=== PATIENT | female | born 1950 ===

== ENCOUNTER 2018-12-10 13:59 | Outpatient (CLI) | payer MEDICARE | END 2018-12-10 14:00 | disposition home or self-care (01) | LOC: C.RADIC 13:59 ==

== ENCOUNTER 2018-12-25 20:38 | Inpatient (IN) | payer MEDICAID, MEDICARE ==
--- NOTE | 2018-12-25 20:49 | C.PDOC ---
History Of Present Illness Patient presents with progressive SOB and chest pain on exertion worsening over the last 2 weeks. Patient was just seen by Dr. Perales and sent in for evaluation. She had recent blood work showing a hemoglobin of 7. Patient is currently speaking in complete sentences. Denies fever, chills, nausea, or vomiting. Time Seen by Provider: 12/25/18 20:48 History Per: Patient History/Exam Limitations: no limitations Onset/Duration Of Symptoms: Days Current Symptoms Are (Timing): Still Present Initiating Event: Other Exacerbating Factor(s): Exertion Current Respiratory Medications: See Home Med List Severity: Moderate Pain Scale Rating Of: 4 Associated Symptoms: Chest Pain, Other (SOB). denies: Fever, Chills Reports Recently: Treated By A Physician Recent travel outside of the [place]: No Additional History Per: Family Past Medical History Reviewed: Historical Data, Nursing Documentation, Vital Signs Family History: States: No Known Family Hx Review Of Systems Constitutional: Negative for: Fever, Chills Cardiovascular: Positive for: Chest Pain Respiratory: Positive for: Shortness of Breath Gastrointestinal: Negative for: Nausea, Vomiting Genitourinary: Negative for: Dysuria Musculoskeletal: Negative for: Back Pain Skin: Negative for: Rash Neurological: Negative for: Weakness, Numbness Psych: Negative for: Anxiety Physical Exam - Physical Exam Appears: Non-toxic Skin: Warm, Dry Head: Normacephalic Eye(s): bilateral: Normal Inspection Oral Mucosa: Moist Neck: Supple Chest: Symmetrical, No Tenderness Cardiovascular: Rhythm Regular Respiratory: No Rales, No Rhonchi, No Wheezing Gastrointestinal/Abdominal: Soft, No Tenderness Rectal: Other (black tool(pt oniron) heme neg) Back: No CVA Tenderness Extremity: Pedal Edema (Trace) Extremity: Bilateral: Atraumatic Pulses: Left Dorsalis Pedis: Normal, Right Dorsalis Pedis: Normal Neurological/Psych: Oriented x3 Gait: Steady ED Course And Treatment - Laboratory Results Result Diagrams: 12/25/18 21:26 12/25/18 21:26 ECG: Interpreted By Me, Viewed By Me ECG Rhythm: Sinus Rhythm (90), Nonspecific Changes O2 Sat by Pulse Oximetry: 99 Pulse Ox Interpretation: Normal - Radiology CXR: Interpreted by Me, Viewed By Me Progress Note: EKG, blood work, CXR, and urinalysis ordered. Aspirin administered. Disposition Discussed With : Crow Hollis Comment: accepeted the pt on his service and took over the care at 10:04PM Doctor Will See Patient In The: Hospital Counseled Patient/Family Regarding: Studies Performed, Diagnosis - Disposition Disposition: HOSPITALIZED Disposition Time: 20:49 Condition: GUARDED - POA Present On Arrival: Poor Glycemic Control - Clinical Impression Clinical Impression: Dyspnea, Chest pain, Dyspnea on exertion, Severe anemia - Scribe Statement The provider has reviewed the documentation as recorded by the Jenaeibemelina Kirk All medical record entries made by the Jenaeibemelina were at my direction and personally dictated by me. I have reviewed the chart and agree that the record accurately reflects my personal performance of the history, physical exam, medical decision making, and the department course for this patient. I have also personally directed, reviewed, and agree with the discharge instructions and disposition. Decision To Admit - Pt Status Changed To: Hospital Disposition Of: Inpatient - Admit Certification Admit to Inpatient:: After my assessment, the patient will require hospitalization for at least two midnights. This is because of the severity of symptoms shown, intensity of services needed, and/or the medical risk in this patient being treated as an outpatient. - InPatient: Physician Admission Certification: I certify that this patient requires 2 or more midnights of care for the following reason:: After my assessment, the patient will require hospitalization for at least two midnights. This is because of the severity of symptoms shown, intensity of services needed, and/or the medical risk in this patient being treated as an outpatient. - . Bed Request Type: Telemetry Admitting Physician: Crow Hollis Patient Diagnosis: Dyspnea, Chest pain, Dyspnea on exertion, Severe anemia
[2018-12-25] MEDS ORDERED: Aspirin 325 mg EC Tablets PO STA (21:20)
[2018-12-25 21:39] LABS: BASO # 0.1 K/uL (0.0-0.2); BASO % 0.8 % (0.0-2.0); EOS # 0.2 K/uL (0.0-0.7); EOS % 2.1 % (0.0-4.0); HEMOGLOBIN 6.9 g/dL (11.0-16.0); LYMPH % 19.3 % (20.0-40.0); MEAN CELL VOLUME 69.7 fL (81.0-99.0); MEAN CORPUSCULAR HEMOGLOBIN 22.2 pg (27.0-31.0); MEAN CORPUSCULAR HGB CONC 31.9 g/dL (33.0-37.0); MEAN PLATELET VOLUME 7.5 fL (7.2-11.7); MONO # 0.7 K/uL (0.0-0.8); NEUT # 7.4 K/uL (1.8-7.0); NEUT % 70.8 % (50.0-75.0); NRBC % 0.1 % (0.0-2.0); RBC 3.09 Mil/uL (3.80-5.20); WHITE BLOOD COUNT 10.4 K/uL (4.8-10.8)
[2018-12-25 21:46] LABS: ALB/GLOB RATIO 1.3 (1.0-2.1); ALBUMIN 4.1 g/dL (3.5-5.0); ALT/SGPT 24 U/L (9-52); AST/SGOT 23 U/L (14-36); BLOOD UREA NITROGEN 11 mg/dL (7-17); CALCIUM 9.7 mg/dl (8.6-10.4); GFR NON-AFRICAN AMERICAN 55
[2018-12-25 21:49] LABS: INR 1.1; PARTIAL THROMBOPLASTIN TIME 32.2 SECONDS (21-34); PROTHROMBIN TIME 11.7 SECONDS (9.7-12.2)
[2018-12-25 21:58] LABS: B-TYPE NATRIURETIC PEPTIDE 161 pg/mL (0-900)
--- NOTE | 2018-12-25 23:27 | CP.PCM.HP ---
<Crow Hollis - Last Filed: 12/25/18 23:27> Past Patient History - Infectious Disease Hx of Infectious Diseases: None - Past Social History Smoking Status: Never Smoked - CARDIAC Hx Hypertension: Yes - ENDOCRINE/METABOLIC Hx Diabetes Mellitus Type 2: Yes - PSYCHIATRIC Hx Substance Use: No - SURGICAL HISTORY Other/Comment: stents -X2 - ANESTHESIA Hx Anesthesia: No Meds Allergies/Adverse Reactions: Allergies Allergy/AdvReac Type Severity Reaction Status Date / Time No Known Allergies Allergy Unverified 12/25/18 21:01 Results - Vital Signs Recent Vital Signs: Last Vital Signs Temp 98.3 F 12/25/18 20:52 Pulse 90 12/25/18 22:34 Resp 17 12/25/18 22:34 BP 145/70 12/25/18 22:34 Pulse Ox 100 12/25/18 22:34 - Labs Result Diagrams: 12/25/18 21:26 12/25/18 21:26 Labs: Laboratory Results - last 24 hr 12/25/18 12/25/18 12/25/18 21:26 21:26 21:26 WBC 10.4 RBC 3.09 L Hgb 6.9 L Hct 21.6 L MCV 69.7 L MCH 22.2 L MCHC 31.9 L RDW 18.0 H Plt Count 295 MPV 7.5 Neut % (Auto) 70.8 Lymph % (Auto) 19.3 L Graves % (Auto) 7.0 Eos % (Auto) 2.1 Baso % (Auto) 0.8 Neut # (Auto) 7.4 H Lymph # (Auto) 2.0 Graves # (Auto) 0.7 Eos # (Auto) 0.2 Baso # (Auto) 0.1 PT 11.7 INR 1.1 APTT 32.2 Sodium 134 Potassium 4.3 Chloride 99 Carbon Dioxide 23 Anion Gap 16 BUN 11 Creatinine 1.0 Est GFR ( Amer) > 60 Est GFR (Non-Af Amer) 55 Random Glucose 175 H Calcium 9.7 Magnesium 1.7 Total Bilirubin 0.2 AST 23 ALT 24 Alkaline Phosphatase 81 Troponin I < 0.0120 NT-Pro-B Natriuret Pep 161 Total Protein 7.3 Albumin 4.1 Globulin 3.2 Albumin/Globulin Ratio 1.3 Blood Type Antibody Screen 12/25/18 21:33 WBC RBC Hgb Hct MCV MCH MCHC RDW Plt Count MPV Neut % (Auto) Lymph % (Auto) Graves % (Auto) Eos % (Auto) Baso % (Auto) Neut # (Auto) Lymph # (Auto) Graves # (Auto) Eos # (Auto) Baso # (Auto) PT INR APTT Sodium Potassium Chloride Carbon Dioxide Anion Gap BUN Creatinine Est GFR ( Amer) Est GFR (Non-Af Amer) Random Glucose Calcium Magnesium Total Bilirubin AST ALT Alkaline Phosphatase Troponin I NT-Pro-B Natriuret Pep Total Protein Albumin Globulin Albumin/Globulin Ratio Blood Type O POSITIVE Antibody Screen Negative <Elvie Zee - Last Filed: 12/26/18 09:03> History of Present Illness - History of Present Illness History of Present Illness: GI Consult PGY5 Consult Note This is a 68yF with pmhx of CAD s/p PCI 3yrs ago on Brilinta and aspirin, HTN, HLD, DM presenting with complaints of generalized weakness and SOB for the past 1 week. Pt denies any rectal bleeding and melena, no prior EGD/Colonoscopy. Per pt's daughter in law over the phone reports she went to [facility] due to pt's complaints and everything was okay and then went to PCP who did blood work with low Hgb an started on iron pills this week. Since pt continued to complain of weakness and unable to climb stairs brought her to the ER. Hgb 6.9, Tachy on admission and given 1U PRCs. ROS: A 12pt ROS was negative except as above. PmHx: As stated in HPI PsHx: Denies FHx: Neg for GI malignancy Physical Exam - Constitutional Appears: Non-toxic, No Acute Distress - Head Exam Head Exam: ATRAUMATIC, NORMAL INSPECTION, NORMOCEPHALIC - Eye Exam Eye Exam: EOMI, Normal appearance, PERRL Pupil Exam: PERRL - ENT Exam ENT Exam: Mucous Membranes Moist, Normal Exam - Neck Exam Neck exam: Positive for: Full Rom, Normal Inspection - Respiratory Exam Respiratory Exam: Clear to Auscultation Bilateral, NORMAL BREATHING PATTERN - Cardiovascular Exam Cardiovascular Exam: REGULAR RHYTHM, RRR, +S1, +S2 - GI/Abdominal Exam GI & Abdominal Exam: Normal Bowel Sounds, Soft. absent: Distended, Firm, Guarding, Tenderness - Rectal Exam Rectal Exam: NORMAL INSPECTION. absent: Black Stool, Bloody Stool, Hemorrhoids, Fecal Impaction - Extremities Exam Extremities exam: Positive for: full ROM, normal inspection - Back Exam Back exam: NORMAL INSPECTION - Neurological Exam Neurological exam: Alert, Oriented x3 - Psychiatric Exam Psychiatric exam: Normal Affect, Normal Mood - Skin Skin Exam: Dry, Intact, Normal Color, Warm Results - Vital Signs Recent Vital Signs: Last Vital Signs Temp 97.8 F 12/26/18 07:06 Pulse 92 H 12/26/18 07:06 Resp 20 12/26/18 07:06 BP 138/75 12/26/18 07:06 Pulse Ox 95 12/26/18 07:06 - Labs Result Diagrams: 12/25/18 21:26 12/25/18 21:26 Labs: Laboratory Results - last 24 hr 12/25/18 12/25/18 12/25/18 21:26 21:26 21:26 WBC 10.4 RBC 3.09 L Hgb 6.9 L Hct 21.6 L MCV 69.7 L MCH 22.2 L MCHC 31.9 L RDW 18.0 H Plt Count 295 MPV 7.5 Neut % (Auto) 70.8 Lymph % (Auto) 19.3 L Graves % (Auto) 7.0 Eos % (Auto) 2.1 Baso % (Auto) 0.8 Neut # (Auto) 7.4 H Lymph # (Auto) 2.0 Graves # (Auto) 0.7 Eos # (Auto) 0.2 Baso # (Auto) 0.1 PT 11.7 INR 1.1 APTT 32.2 Sodium 134 Potassium 4.3 Chloride 99 Carbon Dioxide 23 Anion Gap 16 BUN 11 Creatinine 1.0 Est GFR ( Amer) > 60 Est GFR (Non-Af Amer) 55 POC Glucose (mg/dL) Random Glucose 175 H Calcium 9.7 Magnesium 1.7 Total Bilirubin 0.2 AST 23 ALT 24 Alkaline Phosphatase 81 Troponin I < 0.0120 NT-Pro-B Natriuret Pep 161 Total Protein 7.3 Albumin 4.1 Globulin 3.2 Albumin/Globulin Ratio 1.3 Urine Color Urine Clarity Urine pH Ur Specific [place] Urine Protein Urine Glucose (UA) Urine Ketones Urine Blood Urine Nitrate Urine Bilirubin Urine Urobilinogen Ur Leukocyte Esterase Urine WBC (Auto) Urine RBC (Auto) Ur Squamous Epith Cells Urine Bacteria Stool Occult Blood Blood Type Antibody Screen 12/25/18 12/25/18 12/26/18 21:33 23:39 01:20 WBC RBC Hgb Hct MCV MCH MCHC RDW Plt Count MPV Neut % (Auto) Lymph % (Auto) Graves % (Auto) Eos % (Auto) Baso % (Auto) Neut # (Auto) Lymph # (Auto) Graves # (Auto) Eos # (Auto) Baso # (Auto) PT INR APTT Sodium Potassium Chloride Carbon Dioxide Anion Gap BUN Creatinine Est GFR ( Amer) Est GFR (Non-Af Amer) POC Glucose (mg/dL) Random Glucose Calcium Magnesium Total Bilirubin AST ALT Alkaline Phosphatase Troponin I NT-Pro-B Natriuret Pep Total Protein Albumin Globulin Albumin/Globulin Ratio Urine Color Straw Urine Clarity Clear Urine pH 7.0 Ur Specific [place] 1.006 Urine Protein Negative Urine Glucose (UA) Normal Urine Ketones Negative Urine Blood 1+ H Urine Nitrate Negative Urine Bilirubin Negative Urine Urobilinogen Normal Ur Leukocyte Esterase 1+ H Urine WBC (Auto) 4 Urine RBC (Auto) 6 H Ur Squamous Epith Cells 1 Urine Bacteria Occ H Stool Occult Blood Negative Blood Type O POSITIVE Antibody Screen Negative 12/26/18 06:45 WBC RBC Hgb Hct MCV MCH MCHC RDW Plt Count MPV Neut % (Auto) Lymph % (Auto) Graves % (Auto) Eos % (Auto) Baso % (Auto) Neut # (Auto) Lymph # (Auto) Graves # (Auto) Eos # (Auto) Baso # (Auto) PT INR APTT Sodium Potassium Chloride Carbon Dioxide Anion Gap BUN Creatinine Est GFR ( Amer) Est GFR (Non-Af Amer) POC Glucose (mg/dL) 116 H Random Glucose Calcium Magnesium Total Bilirubin AST ALT Alkaline Phosphatase Troponin I NT-Pro-B Natriuret Pep Total Protein Albumin Globulin Albumin/Globulin Ratio Urine Color Urine Clarity Urine pH Ur Specific [place] Urine Protein Urine Glucose (UA) Urine Ketones Urine Blood Urine Nitrate Urine Bilirubin Urine Urobilinogen Ur Leukocyte Esterase Urine WBC (Auto) Urine RBC (Auto) Ur Squamous Epith Cells Urine Bacteria Stool Occult Blood Blood Type Antibody Screen Assessment & Plan - Assessment and Plan (Free Text) Assessment: 1. Symptomatic Anemia 2. CADs/p PCI on Brilinta 3. HTN, HLD, DM Plan: -Continue supportive care -No active GI bleeding at this time -s/p 1u PRBCs, ordered stat CBC to see if Hgb improved -Rectal exam with brown stool -Pt with CAD on Brilinta -Recommend Cardiology workup and transfuse if Hgb <7 with goal 8-9 -No plan for endoscopic evaluation at this -Pt will need EGD during this admission once cardiac workup completed -Will continue to follow pt
[2018-12-25 23:50] LABS: SQUAMOUS EPITHIAL 1 /hpf (0-5); URINE BACTERIA OCC (<OCC); URINE BILIRUBIN NEGATIVE (NEGATIVE); URINE BLOOD 1+ (NEGATIVE); URINE CLARITY Clear (Clear); URINE COLOR Straw (YELLOW); URINE GLUCOSE (UA) NORMAL (Normal); URINE LEUKOCYTE ESTERASE 1+ Leu/uL (Negative); URINE PROTEIN NEGATIVE (NEGATIVE); URINE UROBILINOGEN NORMAL mg/dL (0.2-1.0)
[2018-12-26] MEDS: Albuterol-Ipratrop 3 mg / 0.5 (3 ml) UD INH SCH ×4 (07:59→20:57)
[2018-12-26 08:18] LABS: MEAN CORPUSCULAR HEMOGLOBIN 24.4 pg (27.0-31.0); MEAN CORPUSCULAR HGB CONC 33.1 g/dL (33.0-37.0); MEAN PLATELET VOLUME 7.8 fL (7.2-11.7); RBC 3.79 Mil/uL (3.80-5.20); RED CELL DISTRIBUTION WIDTH 21.5 % (11.5-14.5); WHITE BLOOD COUNT 9.8 K/uL (4.8-10.8)
[2018-12-26 08:33] LABS: HEMOGLOBIN 9.2 g/dL (11.0-16.0); MEAN CELL VOLUME 73.5 fL (81.0-99.0)
[2018-12-26 08:38] LABS: CK-MB 0.68 ng/mL (0.0-3.38)
[2018-12-26 08:47] LABS: ALB/GLOB RATIO 1.3 (1.0-2.1); ALBUMIN 4.3 g/dL (3.5-5.0); ALT/SGPT 27 U/L (9-52); AST/SGOT 33 U/L (14-36); BLOOD UREA NITROGEN 10 mg/dL (7-17); GFR NON-AFRICAN AMERICAN 55
--- NOTE | 2018-12-26 09:10 | CP.PCM.CON ---
<Elvie Zee - Last Filed: 12/26/18 09:07> History of Present Illness - History of Present Illness History of Present Illness: GI Consult PGY5 Consult Note This is a 68yF with pmhx of CAD s/p PCI 3yrs ago on Brilinta and aspirin, HTN, HLD, DM presenting with complaints of generalized weakness and SOB for the past 1 week. Pt denies any rectal bleeding and melena, no prior EGD/Colonoscopy. Per pt's daughter in law over the phone reports she went to supervisor varnish due to pt's complaints and everything was okay and then went to PCP who did blood work with low Hgb an started on iron pills this week. Since pt continued to complain of weakness and unable to climb stairs brought her to the ER. Hgb 6.9, Tachy on admission and given 1U PRCs. ROS: A 12pt ROS was negative except as above. PmHx: As stated in HPI PsHx: Denies FHx: Neg for GI malignancy Past Patient History - Infectious Disease Hx of Infectious Diseases: None - Past Medical History & Family History Past Medical History?: Yes - Past Social History Smoking Status: Never Smoked - CARDIAC Hx Cardiac Disorders: Yes Hx Hypercholesterolemia: Yes Hx Hypertension: Yes Other/Comment: Coronary Artery Disease, s/p PTCA 2016 - PULMONARY Hx Respiratory Disorders: No - NEUROLOGICAL Hx Neurological Disorder: No - HEENT Hx HEENT Problems: No - RENAL Hx Chronic Kidney Disease: No - ENDOCRINE/METABOLIC Hx Endocrine Disorders: Yes Hx Diabetes Mellitus Type 2: Yes - HEMATOLOGICAL/ONCOLOGICAL Hx Blood Disorders: No - INTEGUMENTARY Hx Dermatological Problems: No - MUSCULOSKELETAL/RHEUMATOLOGICAL Hx Musculoskeletal Disorders: No Hx Falls: No - GASTROINTESTINAL Hx Gastrointestinal Disorders: No - GENITOURINARY/GYNECOLOGICAL Hx Genitourinary Disorders: No - PSYCHIATRIC Hx Psychophysiologic Disorder: No Hx Substance Use: No - SURGICAL HISTORY Hx Surgeries: Yes Other/Comment: stents -X2 - ANESTHESIA Hx Anesthesia: No Meds Allergies/Adverse Reactions: Allergies Allergy/AdvReac Type Severity Reaction Status Date / Time No Known Allergies Allergy Unverified 12/25/18 21:01 - Medications Medications: Current Medications Albuterol/Ipratropium (Duoneb 3 Mg/0.5 Mg (3 Ml) Ud) 3 ml INH RQ4 ILZ Last Admin: 12/26/18 07:59 Dose: 3 ml Aspirin (Aspirin) 325 mg PO DAILY [facility] Ferric Sodium Gluconate Complex (Ferrlecit) 125 mg IVPB DAILY [facility], [facility]1983 Stop: 01/03/19 10:01 Pantoprazole Sodium (Protonix Inj) 40 mg IVP Q12H [facility], [facility] Last Admin: 12/26/18 08:59 Dose: 40 mg Pneumococcal Polyvalent Vaccine (Pneumovax 23 Vaccine) 0.5 ml IM .ONCE ONE Stop: 12/28/18 10:01 Physical Exam - Constitutional Appears: Non-toxic, No Acute Distress - Head Exam Head Exam: ATRAUMATIC, NORMAL INSPECTION, NORMOCEPHALIC - Eye Exam Eye Exam: EOMI, Normal appearance, PERRL Pupil Exam: PERRL - ENT Exam ENT Exam: Mucous Membranes Moist, Normal Exam - Respiratory Exam Respiratory Exam: Clear to Auscultation Bilateral, NORMAL BREATHING PATTERN - Cardiovascular Exam Cardiovascular Exam: REGULAR RHYTHM, RRR, +S1, +S2 - GI/Abdominal Exam GI & Abdominal Exam: Normal Bowel Sounds, Soft. absent: Distended, Firm, Guarding, Organomegaly, Tenderness - Rectal Exam Rectal Exam: NORMAL INSPECTION. absent: Black Stool, Bloody Stool, Hemorrhoids, Fecal Impaction - Extremities Exam Extremities exam: Positive for: full ROM, normal inspection - Back Exam Back exam: FULL ROM, NORMAL INSPECTION - Neurological Exam Neurological exam: Alert, Oriented x3 - Psychiatric Exam Psychiatric exam: Normal Affect, Normal Mood - Skin Skin Exam: Dry, Intact, Normal Color, Warm Results - Vital Signs Recent Vital Signs: Last Vital Signs Temp 97.8 F 12/26/18 07:06 Pulse 92 H 12/26/18 07:06 Resp 20 12/26/18 07:06 BP 138/75 12/26/18 07:06 Pulse Ox 95 12/26/18 07:06 - Labs Result Diagrams: 12/26/18 08:02 12/26/18 08:02 Labs: Laboratory Results - last 24 hr 12/25/18 12/25/18 12/25/18 21:26 21:26 21:26 WBC 10.4 RBC 3.09 L Hgb 6.9 L Hct 21.6 L MCV 69.7 L MCH 22.2 L MCHC 31.9 L RDW 18.0 H Plt Count 295 MPV 7.5 Neut % (Auto) 70.8 Lymph % (Auto) 19.3 L Clayton % (Auto) 7.0 Eos % (Auto) 2.1 Baso % (Auto) 0.8 Neut # (Auto) 7.4 H Lymph # (Auto) 2.0 Clayton # (Auto) 0.7 Eos # (Auto) 0.2 Baso # (Auto) 0.1 PT 11.7 INR 1.1 APTT 32.2 Sodium 134 Potassium 4.3 Chloride 99 Carbon Dioxide 23 Anion Gap 16 BUN 11 Creatinine 1.0 Est GFR ( Amer) > 60 Est GFR (Non-Af Amer) 55 POC Glucose (mg/dL) Random Glucose 175 H Calcium 9.7 Phosphorus Magnesium 1.7 Total Bilirubin 0.2 AST 23 ALT 24 Alkaline Phosphatase 81 Total Creatine Kinase CK-MB (Mass) Troponin I < 0.0120 NT-Pro-B Natriuret Pep 161 Total Protein 7.3 Albumin 4.1 Globulin 3.2 Albumin/Globulin Ratio 1.3 Urine Color Urine Clarity Urine pH Ur Specific Ambrose Urine Protein Urine Glucose (UA) Urine Ketones Urine Blood Urine Nitrate Urine Bilirubin Urine Urobilinogen Ur Leukocyte Esterase Urine WBC (Auto) Urine RBC (Auto) Ur Squamous Epith Cells Urine Bacteria Stool Occult Blood Blood Type Antibody Screen 12/25/18 12/25/18 12/26/18 21:33 23:39 01:20 WBC RBC Hgb Hct MCV MCH MCHC RDW Plt Count MPV Neut % (Auto) Lymph % (Auto) Clayton % (Auto) Eos % (Auto) Baso % (Auto) Neut # (Auto) Lymph # (Auto) Clayton # (Auto) Eos # (Auto) Baso # (Auto) PT INR APTT Sodium Potassium Chloride Carbon Dioxide Anion Gap BUN Creatinine Est GFR ( Amer) Est GFR (Non-Af Amer) POC Glucose (mg/dL) Random Glucose Calcium Phosphorus Magnesium Total Bilirubin AST ALT Alkaline Phosphatase Total Creatine Kinase CK-MB (Mass) Troponin I NT-Pro-B Natriuret Pep Total Protein Albumin Globulin Albumin/Globulin Ratio Urine Color Straw Urine Clarity Clear Urine pH 7.0 Ur Specific Ambrose 1.006 Urine Protein Negative Urine Glucose (UA) Normal Urine Ketones Negative Urine Blood 1+ H Urine Nitrate Negative Urine Bilirubin Negative Urine Urobilinogen Normal Ur Leukocyte Esterase 1+ H Urine WBC (Auto) 4 Urine RBC (Auto) 6 H Ur Squamous Epith Cells 1 Urine Bacteria Occ H Stool Occult Blood Negative Blood Type O POSITIVE Antibody Screen Negative 12/26/18 12/26/18 12/26/18 06:45 08:02 08:02 WBC 9.8 RBC 3.79 L Hgb 9.2 L D Hct 27.9 L MCV 73.5 L D MCH 24.4 L MCHC 33.1 RDW 21.5 H Plt Count 310 MPV 7.8 Neut % (Auto) Lymph % (Auto) Clayton % (Auto) Eos % (Auto) Baso % (Auto) Neut # (Auto) Lymph # (Auto) Clayton # (Auto) Eos # (Auto) Baso # (Auto) PT INR APTT Sodium 136 Potassium 4.3 Chloride 102 Carbon Dioxide 22 Anion Gap 16 BUN 10 Creatinine 1.0 Est GFR ( Amer) > 60 Est GFR (Non-Af Amer) 55 POC Glucose (mg/dL) 116 H Random Glucose 114 H D Calcium 10.0 Phosphorus 4.3 Magnesium 1.7 Total Bilirubin 0.5 AST 33 ALT 27 Alkaline Phosphatase 85 Total Creatine Kinase 73 CK-MB (Mass) 0.68 Troponin I < 0.0120 NT-Pro-B Natriuret Pep Total Protein 7.7 Albumin 4.3 Globulin 3.4 Albumin/Globulin Ratio 1.3 Urine Color Urine Clarity Urine pH Ur Specific Ambrose Urine Protein Urine Glucose (UA) Urine Ketones Urine Blood Urine Nitrate Urine Bilirubin Urine Urobilinogen Ur Leukocyte Esterase Urine WBC (Auto) Urine RBC (Auto) Ur Squamous Epith Cells Urine Bacteria Stool Occult Blood Blood Type Antibody Screen Assessment & Plan - Assessment and Plan (Free Text) Assessment: 1. Symptomatic Anemia 2. CADs/p PCI on Brilinta 3. HTN, HLD, DM Plan: -Continue supportive care -No active GI bleeding at this time -s/p 1u PRBCs, ordered stat CBC to see if Hgb improved -Rectal exam with brown stool -Pt with CAD on Brilinta -Recommend Cardiology workup and transfuse if Hgb <7 with goal 8-9 -No plan for endoscopic evaluation at this -Advance to clear liquid diet today -PPI daily -Pt will need EGD during this admission once cardiac workup completed -Will continue to follow pt <Ivan Bartlett - Last Filed: 12/26/18 17:08> Meds - Medications Medications: Current Medications Albuterol/Ipratropium (Duoneb 3 Mg/0.5 Mg (3 Ml) Ud) 3 ml INH RQ4 [facility] Last Admin: 12/26/18 16:01 Dose: 3 ml Aspirin (Aspirin) 325 mg PO DAILY [facility] Last Admin: 12/26/18 09:26 Dose: 325 mg Ferric Sodium Gluconate Complex (Ferrlecit) 125 mg IVPB DAILY [facility] Stop: 01/03/19 10:01 Last Admin: 12/26/18 09:19 Dose: 125 mg Pantoprazole Sodium (Protonix Inj) 40 mg IVP DAILY [facility] Last Admin: 12/26/18 09:36 Dose: Not Given Pneumococcal Polyvalent Vaccine (Pneumovax 23 Vaccine) 0.5 ml IM .ONCE ONE Stop: 12/28/18 10:01 Results - Vital Signs Recent Vital Signs: Last Vital Signs Temp 97.7 F 12/26/18 15:31 Pulse 97 H 12/26/18 15:31 Resp 20 12/26/18 15:31 BP 143/69 12/26/18 15:31 Pulse Ox 97 12/26/18 15:31 - Labs Result Diagrams: 12/26/18 08:02 12/26/18 08:02 Labs: Laboratory Results - last 24 hr 12/25/18 12/25/18 12/25/18 21:26 21:26 21:26 WBC 10.4 RBC 3.09 L Hgb 6.9 L Hct 21.6 L MCV 69.7 L MCH 22.2 L MCHC 31.9 L RDW 18.0 H Plt Count 295 MPV 7.5 Neut % (Auto) 70.8 Lymph % (Auto) 19.3 L Clayton % (Auto) 7.0 Eos % (Auto) 2.1 Baso % (Auto) 0.8 Neut # (Auto) 7.4 H Lymph # (Auto) 2.0 Clayton # (Auto) 0.7 Eos # (Auto) 0.2 Baso # (Auto) 0.1 PT 11.7 INR 1.1 APTT 32.2 Sodium 134 Potassium 4.3 Chloride 99 Carbon Dioxide 23 Anion Gap 16 BUN 11 Creatinine 1.0 Est GFR ( Amer) > 60 Est GFR (Non-Af Amer) 55 POC Glucose (mg/dL) Random Glucose 175 H Calcium 9.7 Phosphorus Magnesium 1.7 Ferritin Total Bilirubin 0.2 AST 23 ALT 24 Alkaline Phosphatase 81 Total Creatine Kinase CK-MB (Mass) Troponin I < 0.0120 NT-Pro-B Natriuret Pep 161 Total Protein 7.3 Albumin 4.1 Globulin 3.2 Albumin/Globulin Ratio 1.3 Vitamin B12 Folate Urine Color Urine Clarity Urine pH Ur Specific Ambrose Urine Protein Urine Glucose (UA) Urine Ketones Urine Blood Urine Nitrate Urine Bilirubin Urine Urobilinogen Ur Leukocyte Esterase Urine WBC (Auto) Urine RBC (Auto) Ur Squamous Epith Cells Urine Bacteria Stool Occult Blood Blood Type Antibody Screen 12/25/18 12/25/18 12/26/18 21:33 23:39 01:20 WBC RBC Hgb Hct MCV MCH MCHC RDW Plt Count MPV Neut % (Auto) Lymph % (Auto) Clayton % (Auto) Eos % (Auto) Baso % (Auto) Neut # (Auto) Lymph # (Auto) Clayton # (Auto) Eos # (Auto) Baso # (Auto) PT INR APTT Sodium Potassium Chloride Carbon Dioxide Anion Gap BUN Creatinine Est GFR ( Amer) Est GFR (Non-Af Amer) POC Glucose (mg/dL) Random Glucose Calcium Phosphorus Magnesium Ferritin Total Bilirubin AST ALT Alkaline Phosphatase Total Creatine Kinase CK-MB (Mass) Troponin I NT-Pro-B Natriuret Pep Total Protein Albumin Globulin Albumin/Globulin Ratio Vitamin B12 Folate Urine Color Straw Urine Clarity Clear Urine pH 7.0 Ur Specific Ambrose 1.006 Urine Protein Negative Urine Glucose (UA) Normal Urine Ketones Negative Urine Blood 1+ H Urine Nitrate Negative Urine Bilirubin Negative Urine Urobilinogen Normal Ur Leukocyte Esterase 1+ H Urine WBC (Auto) 4 Urine RBC (Auto) 6 H Ur Squamous Epith Cells 1 Urine Bacteria Occ H Stool Occult Blood Negative Blood Type O POSITIVE Antibody Screen Negative 12/26/18 12/26/18 12/26/18 06:45 08:02 08:02 WBC RBC Hgb Hct MCV MCH MCHC RDW Plt Count MPV Neut % (Auto) Lymph % (Auto) Clayton % (Auto) Eos % (Auto) Baso % (Auto) Neut # (Auto) Lymph # (Auto) Clayton # (Auto) Eos # (Auto) Baso # (Auto) PT INR APTT Sodium 136 Potassium 4.3 Chloride 102 Carbon Dioxide 22 Anion Gap 16 BUN 10 Creatinine 1.0 Est GFR ( Amer) > 60 Est GFR (Non-Af Amer) 55 POC Glucose (mg/dL) 116 H Random Glucose 114 H D Calcium 10.0 Phosphorus 4.3 Magnesium 1.7 Ferritin 9.3 Total Bilirubin 0.5 AST 33 ALT 27 Alkaline Phosphatase 85 Total Creatine Kinase 73 CK-MB (Mass) 0.68 Troponin I < 0.0120 NT-Pro-B Natriuret Pep Total Protein 7.7 Albumin 4.3 Globulin 3.4 Albumin/Globulin Ratio 1.3 Vitamin B12 904 Folate 13.0 Urine Color Urine Clarity Urine pH Ur Specific Ambrose Urine Protein Urine Glucose (UA) Urine Ketones Urine Blood Urine Nitrate Urine Bilirubin Urine Urobilinogen Ur Leukocyte Esterase Urine WBC (Auto) Urine RBC (Auto) Ur Squamous Epith Cells Urine Bacteria Stool Occult Blood Blood Type Antibody Screen 12/26/18 12/26/18 12/26/18 08:02 11:25 16:54 WBC 9.8 RBC 3.79 L Hgb 9.2 L D Hct 27.9 L MCV 73.5 L D MCH 24.4 L MCHC 33.1 RDW 21.5 H Plt Count 310 MPV 7.8 Neut % (Auto) Lymph % (Auto) Clayton % (Auto) Eos % (Auto) Baso % (Auto) Neut # (Auto) Lymph # (Auto) Clayton # (Auto) Eos # (Auto) Baso # (Auto) PT INR APTT Sodium Potassium Chloride Carbon Dioxide Anion Gap BUN Creatinine Est GFR ( Amer) Est GFR (Non-Af Amer) POC Glucose (mg/dL) 170 H 256 H Random Glucose Calcium Phosphorus Magnesium Ferritin Total Bilirubin AST ALT Alkaline Phosphatase Total Creatine Kinase CK-MB (Mass) Troponin I NT-Pro-B Natriuret Pep Total Protein Albumin Globulin Albumin/Globulin Ratio Vitamin B12 Folate Urine Color Urine Clarity Urine pH Ur Specific Ambrose Urine Protein Urine Glucose (UA) Urine Ketones Urine Blood Urine Nitrate Urine Bilirubin Urine Urobilinogen Ur Leukocyte Esterase Urine WBC (Auto) Urine RBC (Auto) Ur Squamous Epith Cells Urine Bacteria Stool Occult Blood Blood Type Antibody Screen Attending/Attestation - Attestation I have personally seen and examined this patient.: Yes I have fully participated in the care of the patient.: Yes I have reviewed all pertinent clinical information: Yes Notes (Text): 12/26/18 17:04 I have seen and examined patient with GI fellow. Agree with above documentation with the following additions. In brief, this is a 68 year old female with history of CAD s/p stent on brilinta, DM, HTN, hyperlipidemia who presents to hospital with progressive fatigue and dyspnea on exertion. She reports worsening symptoms over the past one week with sudden difficulty climbing stairs. She was seen by cardiology as outpatient who noted anemia and began patient on iron supplementation. She denies abdominal pain, nausea, vomiting, fever/chills, weight loss, rectal bleeding, melena, or change in bowel habits. No prior endoscopic evaluation. CAD s/p stent on brilinta DM/HTN Hyperlipidemia Dyspnea, symptomatic anemia - Liquid diet as tolerated - Continue to monitor H/H, s/p PRBC transfusion - Follow up cardiology recommendations - Continue with PPI therapy - Patient currently hemodynamically stable without features of overt GI bleeding (rectal exam performed today showed soft brown stool). She would benefit from endoscopic evaluation following completion of cardiac workup and after period of brilinta washout. Will continue to monitor patient clinical course.
[2018-12-26] MEDS: Ferric Sodium Gluconat Complex 62.5 mg/5 ml Vial IVPB SCH (09:19)
--- NOTE | 2018-12-26 10:28 | RAD ---
Date of service: 12/25/2018 PROCEDURE: CHEST RADIOGRAPH, 1 VIEW HISTORY: SOB COMPARISON: 12/10/2018. FINDINGS: LUNGS: The lungs are well inflated and clear. PLEURA: No pneumothorax or pleural effusion. CARDIOVASCULAR: The heart is normal in size. There are aortic atherosclerotic calcifications present. OSSEOUS STRUCTURES: Within normal limits for the patient's age. VISUALIZED UPPER ABDOMEN: Normal. OTHER FINDINGS: None. IMPRESSION: No active pulmonary disease.
[2018-12-26 13:48] LABS: FERRITIN 9.3 ng/mL
[2018-12-26 17:28] LABS: IRON 277 ug/dL (37-170)
[2018-12-26 17:38] LABS: % IRON SATURATION 57 (20-55); TOTAL IRON BINDING CAPACITY 491 ug/dL (250-450)
[2018-12-26] MEDS ORDERED: Glucagon Recombinant 1 mg Inj IM PRN (20:29)
[2018-12-26] MEDS ORDERED: Dextrose 50% SYRINGE Inj (50 ml) IV PRN (20:29)
--- NOTE | 2018-12-26 20:39 | CP.PCM.CON ---
History of Present Illness - History of Present Illness History of Present Illness: 68 year old female with a history of CAD s/p stent, on antiplatelet therapy, admitted with symptomatic anemia. Per the patients daughter, she has been experiencing progressive fatigue and dyspnea with exertion for about 1 weeks time. She denies abnormal bleeding and bruising. She has never had a colonoscpy. In the ER she was found to have a hgb of 6.9 and is s/p PRBC transfusion. Past medical history: CAD s/p stent Past surgical history: Denies Family history: Denies hematologic and oncologic problems Social history: Denies tobacco, alcohol, and illicit drug use. Allergies: NKA Review of systems: All remaining review of systems including HEENT, cardiovascular, respiratory, gastrointestinal, genitourinary, musculoskeletal, dermatologic, neurologic, and psychiatric are negative unless mentioned in the HPI. Past Patient History - Infectious Disease Hx of Infectious Diseases: None - Past Medical History & Family History Past Medical History?: Yes - Past Social History Smoking Status: Never Smoked - CARDIAC Hx Cardiac Disorders: Yes Hx Hypercholesterolemia: Yes Hx Hypertension: Yes - PULMONARY Hx Respiratory Disorders: No - NEUROLOGICAL Hx Neurological Disorder: No - HEENT Hx HEENT Problems: No - RENAL Hx Chronic Kidney Disease: No - ENDOCRINE/METABOLIC Hx Diabetes Mellitus Type 2: Yes - HEMATOLOGICAL/ONCOLOGICAL Hx Blood Disorders: No - INTEGUMENTARY Hx Dermatological Problems: No - MUSCULOSKELETAL/RHEUMATOLOGICAL Hx Musculoskeletal Disorders: No Hx Falls: No - GASTROINTESTINAL Hx Gastrointestinal Disorders: No - GENITOURINARY/GYNECOLOGICAL Hx Genitourinary Disorders: No - PSYCHIATRIC Hx Psychophysiologic Disorder: No Hx Substance Use: No - SURGICAL HISTORY Hx Surgeries: Yes Other/Comment: stents -X2 - ANESTHESIA Hx Anesthesia: No Meds Allergies/Adverse Reactions: Allergies Allergy/AdvReac Type Severity Reaction Status Date / Time No Known Allergies Allergy Unverified 12/25/18 21:01 - Medications Medications: Current Medications Albuterol/Ipratropium (Duoneb 3 Mg/0.5 Mg (3 Ml) Ud) 3 ml INH RQ4 [facility] Last Admin: 12/26/18 16:01 Dose: 3 ml Aspirin (Aspirin) 325 mg PO DAILY [facility] Last Admin: 12/26/18 09:26 Dose: 325 mg Dextrose (Dextrose 50% Inj) 0 ml IV STAT PRN; Protocol PRN Reason: Hypoglycemia Protocol Dextrose (Glutose 15) 0 gm PO ONCE PRN; Protocol PRN Reason: Hypoglycemia Protocol Ferric Sodium Gluconate Complex (Ferrlecit) 125 mg IVPB DAILY [facility] Stop: 01/03/19 10:01 Last Admin: 12/26/18 09:19 Dose: 125 mg Glucagon (Glucagen Diagnostic Kit) 0 mg IM STAT PRN; Protocol PRN Reason: Hypoglycemia Protocol Dextrose (Dextrose 5% In Water 1000 Ml) 1,000 mls @ 0 mls/hr IV .Q0M PRN; Protocol PRN Reason: Hypoglycemia Protocol Insulin Human Regular (Novolin R) 0 unit SC ACHS [facility]; Protocol Metformin HCl (Glucophage) 500 mg PO BID [facility] Pantoprazole Sodium (Protonix Inj) 40 mg IVP DAILY [facility] Last Admin: 12/26/18 09:36 Dose: Not Given Pneumococcal Polyvalent Vaccine (Pneumovax 23 Vaccine) 0.5 ml IM .ONCE ONE Stop: 12/28/18 10:01 Physical Exam - Head Exam Head Exam: ATRAUMATIC - Eye Exam Eye Exam: Normal appearance - ENT Exam ENT Exam: Mucous Membranes Dry - Respiratory Exam Respiratory Exam: NORMAL BREATHING PATTERN - Cardiovascular Exam Cardiovascular Exam: +S1, +S2 - GI/Abdominal Exam GI & Abdominal Exam: Normal Bowel Sounds - Extremities Exam Extremities exam: Positive for: normal inspection - Neurological Exam Neurological exam: Oriented x3 - Psychiatric Exam Psychiatric exam: Normal Affect, Normal Mood - Skin Skin Exam: Warm Results - Vital Signs Recent Vital Signs: Last Vital Signs Temp 97.7 F 12/26/18 15:31 Pulse 103 H 12/26/18 17:10 Resp 20 12/26/18 15:31 BP 143/69 12/26/18 15:31 Pulse Ox 97 12/26/18 15:31 - Labs Result Diagrams: 12/27/18 07:01 12/27/18 07:41 Labs: Laboratory Results - last 24 hr 12/25/18 12/25/18 12/25/18 21:26 21:26 21:26 WBC 10.4 RBC 3.09 L Hgb 6.9 L Hct 21.6 L MCV 69.7 L MCH 22.2 L MCHC 31.9 L RDW 18.0 H Plt Count 295 MPV 7.5 Neut % (Auto) 70.8 Lymph % (Auto) 19.3 L Tripp % (Auto) 7.0 Eos % (Auto) 2.1 Baso % (Auto) 0.8 Neut # (Auto) 7.4 H Lymph # (Auto) 2.0 Tripp # (Auto) 0.7 Eos # (Auto) 0.2 Baso # (Auto) 0.1 PT 11.7 INR 1.1 APTT 32.2 Sodium 134 Potassium 4.3 Chloride 99 Carbon Dioxide 23 Anion Gap 16 BUN 11 Creatinine 1.0 Est GFR ( Amer) > 60 Est GFR (Non-Af Amer) 55 POC Glucose (mg/dL) Random Glucose 175 H Calcium 9.7 Phosphorus Magnesium 1.7 Iron TIBC % Saturation Ferritin Total Bilirubin 0.2 AST 23 ALT 24 Alkaline Phosphatase 81 Total Creatine Kinase CK-MB (Mass) Troponin I < 0.0120 NT-Pro-B Natriuret Pep 161 Total Protein 7.3 Albumin 4.1 Globulin 3.2 Albumin/Globulin Ratio 1.3 Vitamin B12 Folate Urine Color Urine Clarity Urine pH Ur Specific [place] Urine Protein Urine Glucose (UA) Urine Ketones Urine Blood Urine Nitrate Urine Bilirubin Urine Urobilinogen Ur Leukocyte Esterase Urine WBC (Auto) Urine RBC (Auto) Ur Squamous Epith Cells Urine Bacteria Stool Occult Blood Blood Type Antibody Screen 12/25/18 12/25/18 12/26/18 21:33 23:39 01:20 WBC RBC Hgb Hct MCV MCH MCHC RDW Plt Count MPV Neut % (Auto) Lymph % (Auto) Tripp % (Auto) Eos % (Auto) Baso % (Auto) Neut # (Auto) Lymph # (Auto) Tripp # (Auto) Eos # (Auto) Baso # (Auto) PT INR APTT Sodium Potassium Chloride Carbon Dioxide Anion Gap BUN Creatinine Est GFR ( Amer) Est GFR (Non-Af Amer) POC Glucose (mg/dL) Random Glucose Calcium Phosphorus Magnesium Iron TIBC % Saturation Ferritin Total Bilirubin AST ALT Alkaline Phosphatase Total Creatine Kinase CK-MB (Mass) Troponin I NT-Pro-B Natriuret Pep Total Protein Albumin Globulin Albumin/Globulin Ratio Vitamin B12 Folate Urine Color Straw Urine Clarity Clear Urine pH 7.0 Ur Specific [place] 1.006 Urine Protein Negative Urine Glucose (UA) Normal Urine Ketones Negative Urine Blood 1+ H Urine Nitrate Negative Urine Bilirubin Negative Urine Urobilinogen Normal Ur Leukocyte Esterase 1+ H Urine WBC (Auto) 4 Urine RBC (Auto) 6 H Ur Squamous Epith Cells 1 Urine Bacteria Occ H Stool Occult Blood Negative Blood Type O POSITIVE Antibody Screen Negative 12/26/18 12/26/18 12/26/18 06:45 08:02 08:02 WBC RBC Hgb Hct MCV MCH MCHC RDW Plt Count MPV Neut % (Auto) Lymph % (Auto) Tripp % (Auto) Eos % (Auto) Baso % (Auto) Neut # (Auto) Lymph # (Auto) Tripp # (Auto) Eos # (Auto) Baso # (Auto) PT INR APTT Sodium 136 Potassium 4.3 Chloride 102 Carbon Dioxide 22 Anion Gap 16 BUN 10 Creatinine 1.0 Est GFR ( Amer) > 60 Est GFR (Non-Af Amer) 55 POC Glucose (mg/dL) 116 H Random Glucose 114 H D Calcium 10.0 Phosphorus 4.3 Magnesium 1.7 Iron TIBC % Saturation Ferritin 9.3 Total Bilirubin 0.5 AST 33 ALT 27 Alkaline Phosphatase 85 Total Creatine Kinase 73 CK-MB (Mass) 0.68 Troponin I < 0.0120 NT-Pro-B Natriuret Pep Total Protein 7.7 Albumin 4.3 Globulin 3.4 Albumin/Globulin Ratio 1.3 Vitamin B12 904 Folate 13.0 Urine Color Urine Clarity Urine pH Ur Specific [place] Urine Protein Urine Glucose (UA) Urine Ketones Urine Blood Urine Nitrate Urine Bilirubin Urine Urobilinogen Ur Leukocyte Esterase Urine WBC (Auto) Urine RBC (Auto) Ur Squamous Epith Cells Urine Bacteria Stool Occult Blood Blood Type Antibody Screen 12/26/18 12/26/18 12/26/18 08:02 11:25 16:51 WBC 9.8 RBC 3.79 L Hgb 9.2 L D Hct 27.9 L MCV 73.5 L D MCH 24.4 L MCHC 33.1 RDW 21.5 H Plt Count 310 MPV 7.8 Neut % (Auto) Lymph % (Auto) Tripp % (Auto) Eos % (Auto) Baso % (Auto) Neut # (Auto) Lymph # (Auto) Tripp # (Auto) Eos # (Auto) Baso # (Auto) PT INR APTT Sodium Potassium Chloride Carbon Dioxide Anion Gap BUN Creatinine Est GFR ( Amer) Est GFR (Non-Af Amer) POC Glucose (mg/dL) 170 H Random Glucose Calcium Phosphorus Magnesium Iron 277 H TIBC 491 H % Saturation 57 H Ferritin Total Bilirubin AST ALT Alkaline Phosphatase Total Creatine Kinase CK-MB (Mass) Troponin I NT-Pro-B Natriuret Pep Total Protein Albumin Globulin Albumin/Globulin Ratio Vitamin B12 Folate Urine Color Urine Clarity Urine pH Ur Specific [place] Urine Protein Urine Glucose (UA) Urine Ketones Urine Blood Urine Nitrate Urine Bilirubin Urine Urobilinogen Ur Leukocyte Esterase Urine WBC (Auto) Urine RBC (Auto) Ur Squamous Epith Cells Urine Bacteria Stool Occult Blood Blood Type Antibody Screen 12/26/18 16:54 WBC RBC Hgb Hct MCV MCH MCHC RDW Plt Count MPV Neut % (Auto) Lymph % (Auto) Tripp % (Auto) Eos % (Auto) Baso % (Auto) Neut # (Auto) Lymph # (Auto) Tripp # (Auto) Eos # (Auto) Baso # (Auto) PT INR APTT Sodium Potassium Chloride Carbon Dioxide Anion Gap BUN Creatinine Est GFR ( Amer) Est GFR (Non-Af Amer) POC Glucose (mg/dL) 256 H Random Glucose Calcium Phosphorus Magnesium Iron TIBC % Saturation Ferritin Total Bilirubin AST ALT Alkaline Phosphatase Total Creatine Kinase CK-MB (Mass) Troponin I NT-Pro-B Natriuret Pep Total Protein Albumin Globulin Albumin/Globulin Ratio Vitamin B12 Folate Urine Color Urine Clarity Urine pH Ur Specific [place] Urine Protein Urine Glucose (UA) Urine Ketones Urine Blood Urine Nitrate Urine Bilirubin Urine Urobilinogen Ur Leukocyte Esterase Urine WBC (Auto) Urine RBC (Auto) Ur Squamous Epith Cells Urine Bacteria Stool Occult Blood Blood Type Antibody Screen Assessment & Plan (1) Severe anemia Assessment and Plan: work up consistent with iron deficiency anemia likely chronic GI blood loss; for GI evaluation s/p PRBC transfusion on IV iron Thank you for this interesting consult. Status: Acute
[2018-12-26] MEDS: (Novolin R) Insulin Human Regular 100 units/ml vial SC SCH (21:36)
--- NOTE | 2018-12-26 23:11 | CP.PCM.HP ---
Past Patient History - Infectious Disease Hx of Infectious Diseases: None - Past Medical History & Family History Past Medical History?: Yes - Past Social History Smoking Status: Never Smoked - CARDIAC Hx Cardiac Disorders: Yes Hx Hypercholesterolemia: Yes Hx Hypertension: Yes - PULMONARY Hx Respiratory Disorders: No - NEUROLOGICAL Hx Neurological Disorder: No - HEENT Hx HEENT Problems: No - RENAL Hx Chronic Kidney Disease: No - ENDOCRINE/METABOLIC Hx Diabetes Mellitus Type 2: Yes - HEMATOLOGICAL/ONCOLOGICAL Hx Blood Disorders: No - INTEGUMENTARY Hx Dermatological Problems: No - MUSCULOSKELETAL/RHEUMATOLOGICAL Hx Musculoskeletal Disorders: No Hx Falls: No - GASTROINTESTINAL Hx Gastrointestinal Disorders: No - GENITOURINARY/GYNECOLOGICAL Hx Genitourinary Disorders: No - PSYCHIATRIC Hx Psychophysiologic Disorder: No Hx Substance Use: No - SURGICAL HISTORY Hx Surgeries: Yes Other/Comment: stents -X2 - ANESTHESIA Hx Anesthesia: No Meds Allergies/Adverse Reactions: Allergies Allergy/AdvReac Type Severity Reaction Status Date / Time No Known Allergies Allergy Unverified 12/25/18 21:01 Physical Exam - Constitutional Appears: Well - Head Exam Head Exam: ATRAUMATIC, NORMAL INSPECTION, NORMOCEPHALIC - Eye Exam Eye Exam: EOMI, Normal appearance, PERRL Pupil Exam: NORMAL ACCOMODATION, PERRL - ENT Exam ENT Exam: Mucous Membranes Moist, Normal Exam - Neck Exam Neck exam: Positive for: Normal Inspection - Respiratory Exam Respiratory Exam: Decreased Breath Sounds - Cardiovascular Exam Cardiovascular Exam: REGULAR RHYTHM, +S1, +S2 - GI/Abdominal Exam GI & Abdominal Exam: Diminished Bowel Sounds, Soft - Rectal Exam Rectal Exam: Deferred - Neurological Exam Neurological exam: Oriented x3 Results - Vital Signs Recent Vital Signs: Last Vital Signs Temp 97.7 F 12/26/18 15:31 Pulse 103 H 12/26/18 17:10 Resp 20 12/26/18 15:31 BP 143/69 12/26/18 15:31 Pulse Ox 97 12/26/18 15:31 - Labs Result Diagrams: 12/26/18 08:02 12/26/18 08:02 Labs: Laboratory Results - last 24 hr 12/25/18 12/25/18 12/26/18 21:33 23:39 01:20 WBC RBC Hgb Hct MCV MCH MCHC RDW Plt Count MPV Sodium Potassium Chloride Carbon Dioxide Anion Gap BUN Creatinine Est GFR ( Amer) Est GFR (Non-Af Amer) POC Glucose (mg/dL) Random Glucose Calcium Phosphorus Magnesium Iron TIBC % Saturation Ferritin Total Bilirubin AST ALT Alkaline Phosphatase Total Creatine Kinase CK-MB (Mass) Troponin I Total Protein Albumin Globulin Albumin/Globulin Ratio Vitamin B12 Folate Urine Color Straw Urine Clarity Clear Urine pH 7.0 Ur Specific [place] 1.006 Urine Protein Negative Urine Glucose (UA) Normal Urine Ketones Negative Urine Blood 1+ H Urine Nitrate Negative Urine Bilirubin Negative Urine Urobilinogen Normal Ur Leukocyte Esterase 1+ H Urine WBC (Auto) 4 Urine RBC (Auto) 6 H Ur Squamous Epith Cells 1 Urine Bacteria Occ H Stool Occult Blood Negative Blood Type O POSITIVE Antibody Screen Negative 12/26/18 12/26/18 12/26/18 06:45 08:02 08:02 WBC RBC Hgb Hct MCV MCH MCHC RDW Plt Count MPV Sodium 136 Potassium 4.3 Chloride 102 Carbon Dioxide 22 Anion Gap 16 BUN 10 Creatinine 1.0 Est GFR ( Amer) > 60 Est GFR (Non-Af Amer) 55 POC Glucose (mg/dL) 116 H Random Glucose 114 H D Calcium 10.0 Phosphorus 4.3 Magnesium 1.7 Iron TIBC % Saturation Ferritin 9.3 Total Bilirubin 0.5 AST 33 ALT 27 Alkaline Phosphatase 85 Total Creatine Kinase 73 CK-MB (Mass) 0.68 Troponin I < 0.0120 Total Protein 7.7 Albumin 4.3 Globulin 3.4 Albumin/Globulin Ratio 1.3 Vitamin B12 904 Folate 13.0 Urine Color Urine Clarity Urine pH Ur Specific [place] Urine Protein Urine Glucose (UA) Urine Ketones Urine Blood Urine Nitrate Urine Bilirubin Urine Urobilinogen Ur Leukocyte Esterase Urine WBC (Auto) Urine RBC (Auto) Ur Squamous Epith Cells Urine Bacteria Stool Occult Blood Blood Type Antibody Screen 12/26/18 12/26/18 12/26/18 08:02 11:25 16:51 WBC 9.8 RBC 3.79 L Hgb 9.2 L D Hct 27.9 L MCV 73.5 L D MCH 24.4 L MCHC 33.1 RDW 21.5 H Plt Count 310 MPV 7.8 Sodium Potassium Chloride Carbon Dioxide Anion Gap BUN Creatinine Est GFR ( Amer) Est GFR (Non-Af Amer) POC Glucose (mg/dL) 170 H Random Glucose Calcium Phosphorus Magnesium Iron 277 H TIBC 491 H % Saturation 57 H Ferritin Total Bilirubin AST ALT Alkaline Phosphatase Total Creatine Kinase CK-MB (Mass) Troponin I Total Protein Albumin Globulin Albumin/Globulin Ratio Vitamin B12 Folate Urine Color Urine Clarity Urine pH Ur Specific [place] Urine Protein Urine Glucose (UA) Urine Ketones Urine Blood Urine Nitrate Urine Bilirubin Urine Urobilinogen Ur Leukocyte Esterase Urine WBC (Auto) Urine RBC (Auto) Ur Squamous Epith Cells Urine Bacteria Stool Occult Blood Blood Type Antibody Screen 12/26/18 12/26/18 16:54 21:20 WBC RBC Hgb Hct MCV MCH MCHC RDW Plt Count MPV Sodium Potassium Chloride Carbon Dioxide Anion Gap BUN Creatinine Est GFR ( Amer) Est GFR (Non-Af Amer) POC Glucose (mg/dL) 256 H 299 H Random Glucose Calcium Phosphorus Magnesium Iron TIBC % Saturation Ferritin Total Bilirubin AST ALT Alkaline Phosphatase Total Creatine Kinase CK-MB (Mass) Troponin I Total Protein Albumin Globulin Albumin/Globulin Ratio Vitamin B12 Folate Urine Color Urine Clarity Urine pH Ur Specific [place] Urine Protein Urine Glucose (UA) Urine Ketones Urine Blood Urine Nitrate Urine Bilirubin Urine Urobilinogen Ur Leukocyte Esterase Urine WBC (Auto) Urine RBC (Auto) Ur Squamous Epith Cells Urine Bacteria Stool Occult Blood Blood Type Antibody Screen
--- NOTE | 2018-12-26 23:17 | CP.PCM.CON ---
History of Present Illness - History of Present Illness History of Present Illness: Patient presents with progressive SOB and chest pain on exertion worsening over the last 2 weeks. Patient was just seen by Dr. Perales and sent in for evaluation. She had recent blood work showing a hemoglobin of 7. Patient is currently s peaking in complete sentences. Denies fever, chills, nausea, or vomiting. History Per: Patient History/Exam Limitations: no limitations Onset/Duration Of Symptoms: Days Current Symptoms Are (Timing): Still Present Initiating Event: Other Exacerbating Factor(s): Exertion Current Respiratory Medications: See Home Med List Severity: Moderate Pain Scale Rating Of: 4 Associated Symptoms: Chest Pain, Other (SOB). denies: Fever, Chills Reports Recently: Treated By A Physician Recent travel outside of the [place]: No Additional History Per: Family Past Medical History Reviewed: Historical Data, Nursing Documentation, Vital Signs Family History: States: No Known Family Hx Review Of Systems Constitutional: Negative for: Fever, Chills Cardiovascular: Positive for: Chest Pain Respiratory: Positive for: Shortness of Breath Gastrointestinal: Negative for: Nausea, Vomiting Genitourinary: Negative for: Dysuria Musculoskeletal: Negative for: Back Pain Skin: Negative for: Rash Neurological: Negative for: Weakness, Numbness Psych: Negative for: Anxiety Physical Exam - Physical Exam Appears: Non-toxic Skin: Warm, Dry Head: Normacephalic Eye(s): bilateral: Normal Inspection Oral Mucosa: Moist Neck: Supple Chest: Symmetrical, No Tenderness Cardiovascular: Rhythm Regular Respiratory: No Rales, No Rhonchi, No Wheezing Gastrointestinal/Abdominal: Soft, No Tenderness Rectal: Other (black tool(pt oniron) heme neg) Back: No CVA Tenderness Extremity: Pedal Edema (Trace) Extremity: Bilateral: Atraumatic Pulses: Left Dorsalis Pedis: Normal, Right Dorsalis Pedis: Normal Neurological/Psych: Oriented x3 Gait: Steady Past Patient History - Infectious Disease Hx of Infectious Diseases: None - Past Medical History & Family History Past Medical History?: Yes - Past Social History Smoking Status: Never Smoked - CARDIAC Hx Cardiac Disorders: Yes Hx Hypercholesterolemia: Yes Hx Hypertension: Yes - PULMONARY Hx Respiratory Disorders: No - NEUROLOGICAL Hx Neurological Disorder: No - HEENT Hx HEENT Problems: No - RENAL Hx Chronic Kidney Disease: No - ENDOCRINE/METABOLIC Hx Diabetes Mellitus Type 2: Yes - HEMATOLOGICAL/ONCOLOGICAL Hx Blood Disorders: No - INTEGUMENTARY Hx Dermatological Problems: No - MUSCULOSKELETAL/RHEUMATOLOGICAL Hx Musculoskeletal Disorders: No Hx Falls: No - GASTROINTESTINAL Hx Gastrointestinal Disorders: No - GENITOURINARY/GYNECOLOGICAL Hx Genitourinary Disorders: No - PSYCHIATRIC Hx Psychophysiologic Disorder: No Hx Substance Use: No - SURGICAL HISTORY Hx Surgeries: Yes Other/Comment: stents -X2 - ANESTHESIA Hx Anesthesia: No Meds Allergies/Adverse Reactions: Allergies Allergy/AdvReac Type Severity Reaction Status Date / Time No Known Allergies Allergy Unverified 12/25/18 21:01 - Medications Medications: Current Medications Albuterol/Ipratropium (Duoneb 3 Mg/0.5 Mg (3 Ml) Ud) 3 ml INH RQ4 [facility] Last Admin: 12/26/18 20:57 Dose: 3 ml Aspirin (Aspirin) 325 mg PO DAILY [facility] Last Admin: 12/26/18 09:26 Dose: 325 mg Dextrose (Dextrose 50% Inj) 0 ml IV STAT PRN; Protocol PRN Reason: Hypoglycemia Protocol Dextrose (Glutose 15) 0 gm PO ONCE PRN; Protocol PRN Reason: Hypoglycemia Protocol Ferric Sodium Gluconate Complex (Ferrlecit) 125 mg IVPB DAILY [facility] Stop: 01/03/19 10:01 Last Admin: 12/26/18 09:19 Dose: 125 mg Glucagon (Glucagen Diagnostic Kit) 0 mg IM STAT PRN; Protocol PRN Reason: Hypoglycemia Protocol Dextrose (Dextrose 5% In Water 1000 Ml) 1,000 mls @ 0 mls/hr IV .Q0M PRN; Protocol PRN Reason: Hypoglycemia Protocol Insulin Human Regular (Novolin R) 0 unit SC ACHS [facility]; Protocol Last Admin: 12/26/18 21:36 Dose: Not Given Metformin HCl (Glucophage) 500 mg PO BID [facility] Pantoprazole Sodium (Protonix Inj) 40 mg IVP DAILY [facility] Last Admin: 12/26/18 09:36 Dose: Not Given Pneumococcal Polyvalent Vaccine (Pneumovax 23 Vaccine) 0.5 ml IM .ONCE ONE Stop: 12/28/18 10:01 Results - Vital Signs Recent Vital Signs: Last Vital Signs Temp 97.7 F 12/26/18 15:31 Pulse 103 H 12/26/18 17:10 Resp 20 12/26/18 15:31 BP 143/69 12/26/18 15:31 Pulse Ox 97 05/17/19 15:31 - Labs Result Diagrams: 12/26/18 08:02 12/26/18 08:02 Labs: Laboratory Results - last 24 hr 12/25/18 12/25/18 12/26/18 21:33 23:39 01:20 WBC RBC Hgb Hct MCV MCH MCHC RDW Plt Count MPV Sodium Potassium Chloride Carbon Dioxide Anion Gap BUN Creatinine Est GFR ( Amer) Est GFR (Non-Af Amer) POC Glucose (mg/dL) Random Glucose Calcium Phosphorus Magnesium Iron TIBC % Saturation Ferritin Total Bilirubin AST ALT Alkaline Phosphatase Total Creatine Kinase CK-MB (Mass) Troponin I Total Protein Albumin Globulin Albumin/Globulin Ratio Vitamin B12 Folate Urine Color Straw Urine Clarity Clear Urine pH 7.0 Ur Specific [place] 1.006 Urine Protein Negative Urine Glucose (UA) Normal Urine Ketones Negative Urine Blood 1+ H Urine Nitrate Negative Urine Bilirubin Negative Urine Urobilinogen Normal Ur Leukocyte Esterase 1+ H Urine WBC (Auto) 4 Urine RBC (Auto) 6 H Ur Squamous Epith Cells 1 Urine Bacteria Occ H Stool Occult Blood Negative Blood Type O POSITIVE Antibody Screen Negative 12/26/18 12/26/18 12/26/18 06:45 08:02 08:02 WBC RBC Hgb Hct MCV MCH MCHC RDW Plt Count MPV Sodium 136 Potassium 4.3 Chloride 102 Carbon Dioxide 22 Anion Gap 16 BUN 10 Creatinine 1.0 Est GFR ( Amer) > 60 Est GFR (Non-Af Amer) 55 POC Glucose (mg/dL) 116 H Random Glucose 114 H D Calcium 10.0 Phosphorus 4.3 Magnesium 1.7 Iron TIBC % Saturation Ferritin 9.3 Total Bilirubin 0.5 AST 33 ALT 27 Alkaline Phosphatase 85 Total Creatine Kinase 73 CK-MB (Mass) 0.68 Troponin I < 0.0120 Total Protein 7.7 Albumin 4.3 Globulin 3.4 Albumin/Globulin Ratio 1.3 Vitamin B12 904 Folate 13.0 Urine Color Urine Clarity Urine pH Ur Specific [place] Urine Protein Urine Glucose (UA) Urine Ketones Urine Blood Urine Nitrate Urine Bilirubin Urine Urobilinogen Ur Leukocyte Esterase Urine WBC (Auto) Urine RBC (Auto) Ur Squamous Epith Cells Urine Bacteria Stool Occult Blood Blood Type Antibody Screen 12/26/18 12/26/18 12/26/18 08:02 11:25 16:51 WBC 9.8 RBC 3.79 L Hgb 9.2 L D Hct 27.9 L MCV 73.5 L D MCH 24.4 L MCHC 33.1 RDW 21.5 H Plt Count 310 MPV 7.8 Sodium Potassium Chloride Carbon Dioxide Anion Gap BUN Creatinine Est GFR ( Amer) Est GFR (Non-Af Amer) POC Glucose (mg/dL) 170 H Random Glucose Calcium Phosphorus Magnesium Iron 277 H TIBC 491 H % Saturation 57 H Ferritin Total Bilirubin AST ALT Alkaline Phosphatase Total Creatine Kinase CK-MB (Mass) Troponin I Total Protein Albumin Globulin Albumin/Globulin Ratio Vitamin B12 Folate Urine Color Urine Clarity Urine pH Ur Specific [place] Urine Protein Urine Glucose (UA) Urine Ketones Urine Blood Urine Nitrate Urine Bilirubin Urine Urobilinogen Ur Leukocyte Esterase Urine WBC (Auto) Urine RBC (Auto) Ur Squamous Epith Cells Urine Bacteria Stool Occult Blood Blood Type Antibody Screen 12/26/18 12/26/18 16:54 21:20 WBC RBC Hgb Hct MCV MCH MCHC RDW Plt Count MPV Sodium Potassium Chloride Carbon Dioxide Anion Gap BUN Creatinine Est GFR ( Amer) Est GFR (Non-Af Amer) POC Glucose (mg/dL) 256 H 299 H Random Glucose Calcium Phosphorus Magnesium Iron TIBC % Saturation Ferritin Total Bilirubin AST ALT Alkaline Phosphatase Total Creatine Kinase CK-MB (Mass) Troponin I Total Protein Albumin Globulin Albumin/Globulin Ratio Vitamin B12 Folate Urine Color Urine Clarity Urine pH Ur Specific [place] Urine Protein Urine Glucose (UA) Urine Ketones Urine Blood Urine Nitrate Urine Bilirubin Urine Urobilinogen Ur Leukocyte Esterase Urine WBC (Auto) Urine RBC (Auto) Ur Squamous Epith Cells Urine Bacteria Stool Occult Blood Blood Type Antibody Screen Assessment & Plan - Assessment and Plan (Free Text) Assessment: 68 F with hx of CAD s/p stents 3 years ago admitted with chest pain and dyspnea Anemia with GIB For EGD on Saturday S/P Blood transfusion
[2018-12-27] MEDS: Albuterol-Ipratrop 3 mg / 0.5 (3 ml) UD INH SCH ×5 (01:51→20:46)
[2018-12-27 07:10] LABS: BASO # 0.1 K/uL (0.0-0.2); BASO % 1.2 % (0.0-2.0); EOS # 0.2 K/uL (0.0-0.7); HEMOGLOBIN 9.2 g/dL (11.0-16.0); LYMPH # 1.9 K/uL (1.0-4.3); LYMPH % 24.4 % (20.0-40.0); MEAN CORPUSCULAR HEMOGLOBIN 24.1 pg (27.0-31.0); MEAN CORPUSCULAR HGB CONC 31.9 g/dL (33.0-37.0); MEAN PLATELET VOLUME 7.7 fL (7.2-11.7); MONO # 0.6 K/uL (0.0-0.8); MONO % 7.3 % (0.0-10.0); NEUT # 4.9 K/uL (1.8-7.0); NEUT % 64.1 % (50.0-75.0); RBC 3.83 Mil/uL (3.80-5.20); RED CELL DISTRIBUTION WIDTH 22.2 % (11.5-14.5); WHITE BLOOD COUNT 7.7 K/uL (4.8-10.8)
[2018-12-27 07:45] LABS: MEAN CELL VOLUME 75.8 fL (81.0-99.0)
[2018-12-27] MEDS: (Novolin R) Insulin Human Regular 100 units/ml vial SC SCH ×4 (07:52→21:58)
[2018-12-27 07:53] LABS: ALB/GLOB RATIO 1.3 (1.0-2.1); ALBUMIN 4.1 g/dL (3.5-5.0); ALT/SGPT 22 U/L (9-52); AST/SGOT 36 U/L (14-36); BLOOD UREA NITROGEN 11 mg/dL (7-17); CALCIUM 9.9 mg/dl (8.6-10.4); GFR NON-AFRICAN AMERICAN 55
[2018-12-27] MEDS: Ferric Sodium Gluconat Complex 62.5 mg/5 ml Vial IVPB SCH (09:57)
--- NOTE | 2018-12-27 14:18 | CARD ---
APPROVED REPORT Date of service: 12/25/2018 EKG Measurement Heart [id number] <Conclusion> Normal sinus rhythm Moderate voltage criteria for LVH, may be normal variant Borderline ECG
--- NOTE | 2018-12-27 23:23 | CP.PCM.PN ---
Subjective - Date & Time of Evaluation Date of Evaluation: 12/27/18 - Subjective Subjective: no c/o vomiting, no diarrhea, no fever Objective - Vital Signs/Intake and Output Vital Signs (last 24 hours): Temp Pulse Resp BP Pulse Ox 97.9 F 111 H 16 122/57 L 98 12/27/18 22:00 12/27/18 22:00 12/27/18 22:00 12/27/18 22:00 12/27/18 16:24 Intake and Output: 12/27/18 12/28/18 18:59 06:59 Intake Total 460 300 Balance 460 300 - Medications Medications: Current Medications Albuterol/Ipratropium (Duoneb 3 Mg/0.5 Mg (3 Ml) Ud) 3 ml INH RQ4 [facility] Last Admin: 12/27/18 20:46 Dose: 3 ml Aspirin (Aspirin) 325 mg PO DAILY [facility] Last Admin: 12/27/18 09:58 Dose: 325 mg Dextrose (Dextrose 50% Inj) 0 ml IV STAT PRN; Protocol PRN Reason: Hypoglycemia Protocol Dextrose (Glutose 15) 0 gm PO ONCE PRN; Protocol PRN Reason: Hypoglycemia Protocol Ferric Sodium Gluconate Complex (Ferrlecit) 125 mg IVPB DAILY [facility] Stop: 01/03/19 10:01 Last Admin: 12/27/18 09:57 Dose: 125 mg Glucagon (Glucagen Diagnostic Kit) 0 mg IM STAT PRN; Protocol PRN Reason: Hypoglycemia Protocol Dextrose (Dextrose 5% In Water 1000 Ml) 1,000 mls @ 0 mls/hr IV .Q0M PRN; Protocol PRN Reason: Hypoglycemia Protocol Insulin Human Regular (Novolin R) 0 unit SC ACHS [facility]; Protocol Last Admin: 12/27/18 21:58 Dose: Not Given Metformin HCl (Glucophage) 500 mg PO BID [facility] Last Admin: 12/27/18 17:43 Dose: 500 mg Pantoprazole Sodium (Protonix Inj) 40 mg IVP DAILY [facility] Last Admin: 12/27/18 09:57 Dose: 40 mg Pneumococcal Polyvalent Vaccine (Pneumovax 23 Vaccine) 0.5 ml IM .ONCE ONE Stop: 12/28/18 10:01 - Labs Labs: 12/27/18 07:01 12/27/18 07:41 PT 11.7 SECONDS (9.7-12.2) 12/25/18 21:26 INR 1.1 12/25/18 21:26 APTT 32.2 SECONDS (21-34) 12/25/18 21:26 Assessment and Plan (1) Chest pain Status: Acute (2) Dyspnea Status: Acute (3) Dyspnea on exertion Status: Acute (4) Severe anemia Status: Acute - Assessment and Plan (Free Text) Plan: Hemoglobin 9.2 Hematocrit 29 Glucose 138 DuoNeb Aspirin Glucose Ferrlecit Novolin Glucophage Protonix Moderate to high complexity of care. Plan of care discussed with patient &/or family & staff. Medications reviewed and reconciled. Labs reviewed. Vitals reviewed.
[2018-12-28] MEDS: Albuterol-Ipratrop 3 mg / 0.5 (3 ml) UD INH SCH ×7 (00:43→23:53)
[2018-12-28] MEDS: (Novolin R) Insulin Human Regular 100 units/ml vial SC SCH ×4 (08:03→22:35)
--- NOTE | 2018-12-28 08:24 | CP.PCM.PN ---
<June Hollis - Last Filed: 12/28/18 08:24> Subjective - Date & Time of Evaluation Date of Evaluation: 12/28/18 Time of Evaluation: 08:00 - Subjective Subjective: PGY5 GI Follow-up Pt seen and examined bedside Denies any abd pain tolerated diet denies any rectal bleeding. nausea, vomiting ROS: 12 point ROS conducted, neg other thana sruthi Objective - Vital Signs/Intake and Output Vital Signs (last 24 hours): Temp Pulse Resp BP Pulse Ox 98.2 F 97 H 20 142/56 L 100 12/28/18 08:01 12/28/18 08:01 12/28/18 08:01 12/28/18 08:01 12/28/18 08:01 Intake and Output: 12/28/18 12/28/18 06:59 18:59 Intake Total 300 Balance 300 - Medications Medications: Current Medications Albuterol/Ipratropium (Duoneb 3 Mg/0.5 Mg (3 Ml) Ud) 3 ml INH RQ4 [facility] Last Admin: 12/28/18 08:08 Dose: 3 ml Aspirin (Aspirin) 325 mg PO DAILY [facility] Last Admin: 12/27/18 09:58 Dose: 325 mg Dextrose (Dextrose 50% Inj) 0 ml IV STAT PRN; Protocol PRN Reason: Hypoglycemia Protocol Dextrose (Glutose 15) 0 gm PO ONCE PRN; Protocol PRN Reason: Hypoglycemia Protocol Ferric Sodium Gluconate Complex (Ferrlecit) 125 mg IVPB DAILY [facility] Stop: 01/03/19 10:01 Last Admin: 12/27/18 09:57 Dose: 125 mg Glucagon (Glucagen Diagnostic Kit) 0 mg IM STAT PRN; Protocol PRN Reason: Hypoglycemia Protocol Dextrose (Dextrose 5% In Water 1000 Ml) 1,000 mls @ 0 mls/hr IV .Q0M PRN; Protocol PRN Reason: Hypoglycemia Protocol Insulin Human Regular (Novolin R) 0 unit SC ACHS [facility]; Protocol Last Admin: 12/28/18 08:03 Dose: Not Given Metformin HCl (Glucophage) 500 mg PO BID [facility] Last Admin: 12/27/18 17:43 Dose: 500 mg Pantoprazole Sodium (Protonix Inj) 40 mg IVP DAILY [facility] Last Admin: 12/27/18 09:57 Dose: 40 mg Pneumococcal Polyvalent Vaccine (Pneumovax 23 Vaccine) 0.5 ml IM .ONCE ONE Stop: 12/28/18 10:01 - Labs Labs: 12/27/18 07:01 12/27/18 07:41 PT 11.7 SECONDS (9.7-12.2) 12/25/18 21:26 INR 1.1 12/25/18 21:26 APTT 32.2 SECONDS (21-34) 12/25/18 21:26 - Constitutional Appears: Non-toxic, No Acute Distress - Head Exam Head Exam: ATRAUMATIC, NORMOCEPHALIC - Eye Exam Eye Exam: Normal appearance - ENT Exam ENT Exam: Mucous Membranes Moist, Normal Exam - Neck Exam Neck Exam: Normal Inspection - Respiratory Exam Respiratory Exam: Clear to Ausculation Bilateral, NORMAL BREATHING PATTERN. absent: Rales, Rhonchi, Wheezes, Respiratory Distress - Cardiovascular Exam Cardiovascular Exam: REGULAR RHYTHM, +S1, +S2 - GI/Abdominal Exam GI & Abdominal Exam: Soft, Normal Bowel Sounds. absent: Distended, Firm, Guarding, Rigid, Tenderness, Organomegaly - Extremities Exam Extremities Exam: absent: Joint Swelling, Pedal Edema - Neurological Exam Neurological Exam: Alert, Awake, Oriented x3 - Psychiatric Exam Psychiatric exam: Normal Affect, Normal Mood - Skin Skin Exam: Dry, Intact, Normal Color, Warm Assessment and Plan - Assessment and Plan (Free Text) Assessment: 1. Symptomatic Anemia 2. CADs/p PCI on Brilinta 3. HTN, HLD, DM Plan: -Continue supportive care -No active GI bleeding at this time -s/p 1u PRBCs -Rectal exam with brown stool -Pt with CAD on Brilinta, last dose 12/25 -Recommend Cardiology workup and transfuse if Hgb <7 with goal 8-9 -continue heart healthy -PPI daily -EGD tomorrow, pending cardiac w/u -NPO after midnight -Will continue to follow pt D/W Dr. Bartlett <Ivan Bartlett - Last Filed: 12/28/18 14:14> Objective - Vital Signs/Intake and Output Vital Signs (last 24 hours): Temp Pulse Resp BP Pulse Ox 98.2 F 97 H 20 142/56 L 100 12/28/18 08:01 12/28/18 08:01 12/28/18 08:01 12/28/18 08:01 12/28/18 08:01 Intake and Output: 12/28/18 12/28/18 06:59 18:59 Intake Total 300 Balance 300 - Medications Medications: Current Medications Albuterol/Ipratropium (Duoneb 3 Mg/0.5 Mg (3 Ml) Ud) 3 ml INH RQ4 [facility] Last Admin: 12/28/18 11:22 Dose: 3 ml Aspirin (Aspirin) 325 mg PO DAILY [facility] Last Admin: 12/28/18 09:03 Dose: 325 mg Dextrose (Dextrose 50% Inj) 0 ml IV STAT PRN; Protocol PRN Reason: Hypoglycemia Protocol Dextrose (Glutose 15) 0 gm PO ONCE PRN; Protocol PRN Reason: Hypoglycemia Protocol Ferric Sodium Gluconate Complex (Ferrlecit) 125 mg IVPB DAILY [facility] Stop: 01/03/19 10:01 Last Admin: 12/28/18 09:05 Dose: 125 mg Glucagon (Glucagen Diagnostic Kit) 0 mg IM STAT PRN; Protocol PRN Reason: Hypoglycemia Protocol Dextrose (Dextrose 5% In Water 1000 Ml) 1,000 mls @ 0 mls/hr IV .Q0M PRN; Protocol PRN Reason: Hypoglycemia Protocol Insulin Human Regular (Novolin R) 0 unit SC ACHS [facility]; Protocol Last Admin: 12/28/18 12:45 Dose: 2 units Metformin HCl (Glucophage) 500 mg PO BID [facility] Last Admin: 12/28/18 09:02 Dose: 500 mg Pantoprazole Sodium (Protonix Inj) 40 mg IVP DAILY [facility] Last Admin: 12/28/18 09:04 Dose: 40 mg - Labs Labs: 12/27/18 07:01 12/27/18 07:41 PT 11.7 SECONDS (9.7-12.2) 12/25/18 21:26 INR 1.1 12/25/18 21:26 APTT 32.2 SECONDS (21-34) 12/25/18 21:26 Attending/Attestation - Attestation I have personally seen and examined this patient.: Yes I have fully participated in the care of the patient.: Yes I have reviewed all pertinent clinical information, including history, physical exam and plan: Yes Notes (Text): 12/28/18 14:10 I have seen and examined patient with GI fellow. No acute events overnight, she is seen resting in bed comfortably. She denies abdominal pain, nausea, vomiting, fever/chills. No bowel movements over past 24 hours. Tolerating PO diet without difficulty. CAD s/p stent on brilinta (held) DM/HTN Hyperlipidemia Anemia - Liquid diet as tolerated - H/H stable, continue to monitor - Case discussed with cardiology Dr. Goodwin, no planned repeat cardiac stress testing at this time - Continue with PPI therapy - Given symptomatic anemia and need for patient to be placed on brilinta, will plan for EGD/colonoscopy tomorrow for further evaluation. Golytely bowel preparation today, NPO after midnight.
[2018-12-28] MEDS: Ferric Sodium Gluconat Complex 62.5 mg/5 ml Vial IVPB SCH (09:05)
[2018-12-28] MEDS ORDERED: Pneumococcal 23-Valent Vaccine IM ONE (10:00)
--- NOTE | 2018-12-28 11:11 | CP.PCM.PN ---
Subjective - Date & Time of Evaluation Date of Evaluation: 12/28/18 - Subjective Subjective: no c/o vomiting, no diarrhea, no fever Objective - Vital Signs/Intake and Output Vital Signs (last 24 hours): Temp Pulse Resp BP Pulse Ox 98.2 F 97 H 20 142/56 L 100 12/28/18 08:01 12/28/18 08:01 12/28/18 08:01 12/28/18 08:01 12/28/18 08:01 Intake and Output: 12/28/18 12/28/18 06:59 18:59 Intake Total 300 Balance 300 - Medications Medications: Current Medications Albuterol/Ipratropium (Duoneb 3 Mg/0.5 Mg (3 Ml) Ud) 3 ml INH RQ4 [facility] Last Admin: 12/28/18 08:08 Dose: 3 ml Aspirin (Aspirin) 325 mg PO DAILY [facility] Last Admin: 12/28/18 09:03 Dose: 325 mg Dextrose (Dextrose 50% Inj) 0 ml IV STAT PRN; Protocol PRN Reason: Hypoglycemia Protocol Dextrose (Glutose 15) 0 gm PO ONCE PRN; Protocol PRN Reason: Hypoglycemia Protocol Ferric Sodium Gluconate Complex (Ferrlecit) 125 mg IVPB DAILY [facility] Stop: 01/03/19 10:01 Last Admin: 12/28/18 09:05 Dose: 125 mg Glucagon (Glucagen Diagnostic Kit) 0 mg IM STAT PRN; Protocol PRN Reason: Hypoglycemia Protocol Dextrose (Dextrose 5% In Water 1000 Ml) 1,000 mls @ 0 mls/hr IV .Q0M PRN; Protocol PRN Reason: Hypoglycemia Protocol Insulin Human Regular (Novolin R) 0 unit SC ACHS [facility]; Protocol Last Admin: 12/28/18 08:03 Dose: Not Given Metformin HCl (Glucophage) 500 mg PO BID [facility] Last Admin: 12/28/18 09:02 Dose: 500 mg Pantoprazole Sodium (Protonix Inj) 40 mg IVP DAILY [facility] Last Admin: 12/28/18 09:04 Dose: 40 mg - Labs Labs: 12/27/18 07:01 12/27/18 07:41 PT 11.7 SECONDS (9.7-12.2) 12/25/18 21:26 INR 1.1 12/25/18 21:26 APTT 32.2 SECONDS (21-34) 12/25/18 21:26 Assessment and Plan (1) Chest pain Status: Acute (2) Dyspnea Status: Acute (3) Dyspnea on exertion Status: Acute (4) Severe anemia Status: Acute - Assessment and Plan (Free Text) Plan: Hemoglobin 9.2 Hematocrit 29 Glucose 138 DuoNeb Aspirin Glucose Ferrlecit Novolin Glucophage Protonix Moderate to high complexity of care. Plan of care discussed with patient &/or family & staff. Medications reviewed and reconciled. Labs reviewed. Vitals reviewed.
[2018-12-28] MEDS ORDERED: Peg-Electrolyte Oral Soln 4L (Golytely) PO ONE (12:47)
[2018-12-28] MEDS ORDERED: Bisacodyl 5mg EC Tab PO ONE (12:47)
--- NOTE | 2018-12-28 21:05 | CP.PCM.PN ---
Subjective - Date & Time of Evaluation Date of Evaluation: 12/28/18 Time of Evaluation: 21:00 - Subjective Subjective: Patient with no cardiac events. admitted for GIB For Endoscopy tomorrow Past Medical History Reviewed: Historical Data, Nursing Documentation, Vital Signs Family History: States: No Known Family Hx Review Of Systems Constitutional: Negative for: Fever, Chills Cardiovascular: Positive for: Chest Pain Respiratory: Positive for: Shortness of Breath Gastrointestinal: Negative for: Nausea, Vomiting Genitourinary: Negative for: Dysuria Musculoskeletal: Negative for: Back Pain Skin: Negative for: Rash Neurological: Negative for: Weakness, Numbness Psych: Negative for: Anxiety Physical Exam - Physical Exam Appears: Non-toxic Skin: Warm, Dry Head: Normacephalic Eye(s): bilateral: Normal Inspection Oral Mucosa: Moist Neck: Supple Chest: Symmetrical, No Tenderness Cardiovascular: Rhythm Regular Respiratory: No Rales, No Rhonchi, No Wheezing Gastrointestinal/Abdominal: Soft, No Tenderness Rectal: Other (black tool(pt oniron) heme neg) Back: No CVA Tenderness Extremity: Pedal Edema (Trace) Extremity: Bilateral: Atraumatic Pulses: Left Dorsalis Pedis: Normal, Right Dorsalis Pedis: Normal Neurological/Psych: Oriented x3 Gait: Steady Objective - Vital Signs/Intake and Output Vital Signs (last 24 hours): Temp Pulse Resp BP Pulse Ox 97.8 F 79 20 145/77 99 12/28/18 16:39 12/28/18 20:46 12/28/18 16:39 12/28/18 16:39 12/28/18 16:39 Intake and Output: 12/28/18 12/29/18 18:59 06:59 Intake Total 700 Balance 700 - Medications Medications: Current Medications Albuterol/Ipratropium (Duoneb 3 Mg/0.5 Mg (3 Ml) Ud) 3 ml INH RQ4 [facility] Last Admin: 12/28/18 20:44 Dose: Not Given Aspirin (Aspirin) 325 mg PO DAILY [facility] Last Admin: 12/28/18 09:03 Dose: 325 mg Dextrose (Dextrose 50% Inj) 0 ml IV STAT PRN; Protocol PRN Reason: Hypoglycemia Protocol Dextrose (Glutose 15) 0 gm PO ONCE PRN; Protocol PRN Reason: Hypoglycemia Protocol Ferric Sodium Gluconate Complex (Ferrlecit) 125 mg IVPB DAILY [facility] Stop: 01/03/19 10:01 Last Admin: 12/28/18 09:05 Dose: 125 mg Glucagon (Glucagen Diagnostic Kit) 0 mg IM STAT PRN; Protocol PRN Reason: Hypoglycemia Protocol Dextrose (Dextrose 5% In Water 1000 Ml) 1,000 mls @ 0 mls/hr IV .Q0M PRN; Protocol PRN Reason: Hypoglycemia Protocol Insulin Human Regular (Novolin R) 0 unit SC ACHS [facility]; Protocol Last Admin: 12/28/18 17:13 Dose: Not Given Metformin HCl (Glucophage) 500 mg PO BID [facility] Last Admin: 12/28/18 09:02 Dose: 500 mg Pantoprazole Sodium (Protonix Inj) 40 mg IVP DAILY [facility] Last Admin: 12/28/18 09:04 Dose: 40 mg - Labs Labs: 12/27/18 07:01 12/27/18 07:41 PT 11.7 SECONDS (9.7-12.2) 12/25/18 21:26 INR 1.1 12/25/18 21:26 APTT 32.2 SECONDS (21-34) 12/25/18 21:26 Assessment and Plan - Assessment and Plan (Free Text) Assessment: 68 F with hx of Coronary stent 3 years ago admitted for symptomatic anemia and GIB For Endoscopy tomorrow Communicated to Patient's primary welfare worker Her recent stress stress test was normal Normal EF No furthre cardiac w/u needed at this time This patient assessed as low risk for cardiac events for EGD and Colonoscopy under conscious sedation
--- NOTE | 2018-12-28 22:07 | CP.PCM.PN ---
Subjective - Date & Time of Evaluation Date of Evaluation: 12/28/18 Time of Evaluation: 16:00 - Subjective Subjective: No complaints, for colonoscopy Objective - Vital Signs/Intake and Output Vital Signs (last 24 hours): Temp Pulse Resp BP Pulse Ox 97.8 F 79 20 145/77 99 12/28/18 16:39 12/28/18 20:46 12/28/18 16:39 12/28/18 16:39 12/28/18 16:39 Intake and Output: 12/28/18 12/29/18 18:59 06:59 Intake Total 700 Balance 700 - Medications Medications: Current Medications Albuterol/Ipratropium (Duoneb 3 Mg/0.5 Mg (3 Ml) Ud) 3 ml INH RQ4 [facility] Last Admin: 12/28/18 20:44 Dose: Not Given Aspirin (Aspirin) 325 mg PO DAILY [facility] Last Admin: 12/28/18 09:03 Dose: 325 mg Dextrose (Dextrose 50% Inj) 0 ml IV STAT PRN; Protocol PRN Reason: Hypoglycemia Protocol Dextrose (Glutose 15) 0 gm PO ONCE PRN; Protocol PRN Reason: Hypoglycemia Protocol Ferric Sodium Gluconate Complex (Ferrlecit) 125 mg IVPB DAILY [facility] Stop: 01/03/19 10:01 Last Admin: 12/28/18 09:05 Dose: 125 mg Glucagon (Glucagen Diagnostic Kit) 0 mg IM STAT PRN; Protocol PRN Reason: Hypoglycemia Protocol Dextrose (Dextrose 5% In Water 1000 Ml) 1,000 mls @ 0 mls/hr IV .Q0M PRN; Protocol PRN Reason: Hypoglycemia Protocol Insulin Human Regular (Novolin R) 0 unit SC ACHS [facility]; Protocol Last Admin: 12/28/18 17:13 Dose: Not Given Metformin HCl (Glucophage) 500 mg PO BID [facility] Last Admin: 12/28/18 09:02 Dose: 500 mg Pantoprazole Sodium (Protonix Inj) 40 mg IVP DAILY [facility] Last Admin: 12/28/18 09:04 Dose: 40 mg Potassium Chloride (K-Dur 20 Meq Er Tab) 40 meq PO BRK [facility] - Labs Labs: 12/27/18 07:01 12/27/18 07:41 PT 11.7 SECONDS (9.7-12.2) 12/25/18 21:26 INR 1.1 12/25/18 21:26 APTT 32.2 SECONDS (21-34) 12/25/18 21:26 - Head Exam Head Exam: ATRAUMATIC - Eye Exam Eye Exam: Normal appearance - ENT Exam ENT Exam: Mucous Membranes Dry - Respiratory Exam Respiratory Exam: NORMAL BREATHING PATTERN - Cardiovascular Exam Cardiovascular Exam: +S1, +S2 - GI/Abdominal Exam GI & Abdominal Exam: Normal Bowel Sounds Assessment and Plan (1) Severe anemia Assessment & Plan: work up consistent with iron deficiency anemia likely chronic GI blood loss; for GI evaluation s/p PRBC transfusion on IV iron Status: Acute
--- NOTE | 2018-12-28 22:07 | CP.PCM.PN ---
Subjective - Date & Time of Evaluation Date of Evaluation: 12/27/18 Time of Evaluation: 12:00 - Subjective Subjective: No complaints. Objective - Vital Signs/Intake and Output Vital Signs (last 24 hours): Temp Pulse Resp BP Pulse Ox 97.8 F 79 20 145/77 99 12/28/18 16:39 12/28/18 20:46 12/28/18 16:39 12/28/18 16:39 12/28/18 16:39 Intake and Output: 12/28/18 12/29/18 18:59 06:59 Intake Total 700 Balance 700 - Medications Medications: Current Medications Albuterol/Ipratropium (Duoneb 3 Mg/0.5 Mg (3 Ml) Ud) 3 ml INH RQ4 [facility] Last Admin: 12/28/18 20:44 Dose: Not Given Aspirin (Aspirin) 325 mg PO DAILY [facility] Last Admin: 12/28/18 09:03 Dose: 325 mg Dextrose (Dextrose 50% Inj) 0 ml IV STAT PRN; Protocol PRN Reason: Hypoglycemia Protocol Dextrose (Glutose 15) 0 gm PO ONCE PRN; Protocol PRN Reason: Hypoglycemia Protocol Ferric Sodium Gluconate Complex (Ferrlecit) 125 mg IVPB DAILY [facility] Stop: 01/03/19 10:01 Last Admin: 12/28/18 09:05 Dose: 125 mg Glucagon (Glucagen Diagnostic Kit) 0 mg IM STAT PRN; Protocol PRN Reason: Hypoglycemia Protocol Dextrose (Dextrose 5% In Water 1000 Ml) 1,000 mls @ 0 mls/hr IV .Q0M PRN; Protocol PRN Reason: Hypoglycemia Protocol Insulin Human Regular (Novolin R) 0 unit SC ACHS [facility]; Protocol Last Admin: 12/28/18 17:13 Dose: Not Given Metformin HCl (Glucophage) 500 mg PO BID [facility] Last Admin: 12/28/18 09:02 Dose: 500 mg Pantoprazole Sodium (Protonix Inj) 40 mg IVP DAILY [facility] Last Admin: 12/28/18 09:04 Dose: 40 mg Potassium Chloride (K-Dur 20 Meq Er Tab) 40 meq PO BRK [facility] - Labs Labs: 12/27/18 07:01 12/27/18 07:41 PT 11.7 SECONDS (9.7-12.2) 12/25/18 21:26 INR 1.1 12/25/18 21:26 APTT 32.2 SECONDS (21-34) 12/25/18 21:26 - Head Exam Head Exam: ATRAUMATIC - Eye Exam Eye Exam: Normal appearance - ENT Exam ENT Exam: Mucous Membranes Dry - Respiratory Exam Respiratory Exam: NORMAL BREATHING PATTERN - Cardiovascular Exam Cardiovascular Exam: +S1, +S2 - GI/Abdominal Exam GI & Abdominal Exam: Normal Bowel Sounds Assessment and Plan (1) Severe anemia Assessment & Plan: work up consistent with iron deficiency anemia likely chronic GI blood loss; for GI evaluation s/p PRBC transfusion on IV iron Status: Acute
--- NOTE | 2018-12-28 23:45 | CP.PCM.PN ---
Subjective - Date & Time of Evaluation Date of Evaluation: 12/27/18 Time of Evaluation: 11:20 - Subjective Subjective: Patient seen and evaluated No cardiac symptoms s/p Blood transfusion Will contact Dr. marshall related to rpior stress test in his office Objective - Vital Signs/Intake and Output Vital Signs (last 24 hours): Temp Pulse Resp BP Pulse Ox 97.8 F 79 20 145/77 99 12/28/18 16:39 12/28/18 20:46 12/28/18 16:39 12/28/18 16:39 12/28/18 16:39 Intake and Output: 12/28/18 12/29/18 18:59 06:59 Intake Total 700 Balance 700 - Medications Medications: Current Medications Albuterol/Ipratropium (Duoneb 3 Mg/0.5 Mg (3 Ml) Ud) 3 ml INH RQ4 [facility] Last Admin: 12/28/18 20:44 Dose: Not Given Aspirin (Aspirin) 325 mg PO DAILY [facility] Last Admin: 12/28/18 09:03 Dose: 325 mg Dextrose (Dextrose 50% Inj) 0 ml IV STAT PRN; Protocol PRN Reason: Hypoglycemia Protocol Dextrose (Glutose 15) 0 gm PO ONCE PRN; Protocol PRN Reason: Hypoglycemia Protocol Ferric Sodium Gluconate Complex (Ferrlecit) 125 mg IVPB DAILY [facility] Stop: 01/03/19 10:01 Last Admin: 12/28/18 09:05 Dose: 125 mg Glucagon (Glucagen Diagnostic Kit) 0 mg IM STAT PRN; Protocol PRN Reason: Hypoglycemia Protocol Dextrose (Dextrose 5% In Water 1000 Ml) 1,000 mls @ 0 mls/hr IV .Q0M PRN; Protocol PRN Reason: Hypoglycemia Protocol Insulin Human Regular (Novolin R) 0 unit SC ACHS [facility]; Protocol Last Admin: 12/28/18 17:13 Dose: Not Given Metformin HCl (Glucophage) 500 mg PO BID [facility] Last Admin: 12/28/18 09:02 Dose: 500 mg Pantoprazole Sodium (Protonix Inj) 40 mg IVP DAILY [facility] Last Admin: 12/28/18 09:04 Dose: 40 mg Potassium Chloride (K-Dur 20 Meq Er Tab) 40 meq PO BRK [facility] - Labs Labs: 12/27/18 07:01 12/27/18 07:41 PT 11.7 SECONDS (9.7-12.2) 12/25/18 21:26 INR 1.1 12/25/18 21:26 APTT 32.2 SECONDS (21-34) 12/25/18 21:26
[2018-12-29] MEDS: Albuterol-Ipratrop 3 mg / 0.5 (3 ml) UD INH SCH ×2 (03:15→09:44)
[2018-12-29] MEDS ORDERED: Potassium Chloride 20 mEq ER Tab PO SCH (08:00)
[2018-12-29] MEDS: (Novolin R) Insulin Human Regular 100 units/ml vial SC SCH ×2 (08:19→11:57)
[2018-12-29] MEDS ORDERED: Lactated Ringer's 1,000 ML IV ONE ×2 (08:26)
[2018-12-29] MEDS ORDERED: Propofol 10 mg/ml Inj (20 ML) ONE ×2 (08:31→08:54)
[2018-12-29] MEDS ORDERED: Simethicone 40 mg/0.6 ml Liquid (30 ml) ONE (08:55)
[2018-12-29 09:19] VITALS: TEMP 98.7; O2SAT 100
[2018-12-29 09:46] VITALS: RESP 15
[2018-12-29] MEDS: Ferric Sodium Gluconat Complex 62.5 mg/5 ml Vial IVPB SCH (10:13)
[2018-12-29 10:14] VITALS: BP 151/72
[2018-12-29 12:28] VITALS: PULSE 91
--- NOTE | 2018-12-29 17:50 | CP.PCM.PN ---
Objective - Vital Signs/Intake and Output Vital Signs (last 24 hours): Temp Pulse Resp BP Pulse Ox 98.7 F 91 H 15 151/72 H 100 12/29/18 09:11 12/29/18 12:25 12/29/18 09:41 12/29/18 10:14 12/29/18 09:41 - Labs Labs: 12/27/18 07:01 12/27/18 07:41 PT 11.7 SECONDS (9.7-12.2) 12/25/18 21:26 INR 1.1 12/25/18 21:26 APTT 32.2 SECONDS (21-34) 12/25/18 21:26 Assessment and Plan - Assessment and Plan (Free Text) Assessment: patient is seen and examined.
--- NOTE | 2018-12-29 22:20 | CP.PCM.PN ---
Subjective - Date & Time of Evaluation Date of Evaluation: 12/29/18 Time of Evaluation: 16:00 - Subjective Subjective: No complaints. Found to have nonbleeding duodenal ulcer and internal hermorrhoids Objective - Vital Signs/Intake and Output Vital Signs (last 24 hours): Temp Pulse Resp BP Pulse Ox 98.7 F 91 H 15 151/72 H 100 12/29/18 09:11 12/29/18 12:25 12/29/18 09:41 12/29/18 10:14 12/29/18 09:41 - Labs Labs: 12/27/18 07:01 12/27/18 07:41 PT 11.7 SECONDS (9.7-12.2) 12/25/18 21:26 INR 1.1 12/25/18 21:26 APTT 32.2 SECONDS (21-34) 12/25/18 21:26 - Head Exam Head Exam: ATRAUMATIC - Eye Exam Eye Exam: Normal appearance - ENT Exam ENT Exam: Mucous Membranes Dry - Respiratory Exam Respiratory Exam: NORMAL BREATHING PATTERN - Cardiovascular Exam Cardiovascular Exam: +S1, +S2 - GI/Abdominal Exam GI & Abdominal Exam: Normal Bowel Sounds Assessment and Plan (1) Severe anemia Assessment & Plan: iron deficiency s/p IV iron and PRBC transfusion s/p EGD/colonoscopy outpatient iron Status: Acute
--- NOTE | 2018-12-29 22:51 | CP.PCM.DIS ---
Provider - Provider Date of Admission: 12/25/18 22:02 Attending physician: Rosamaria Hollis MD Consults: 12/25/18 22:10 Cardiology Consult Stat Comment: chest pain Consulting Provider: Millie Garcia Consulting Physician: Millie Garcia Reason for Consult: chest pain 12/25/18 22:11 Gastroenterology Consult Stat Comment: anemia, poss gi bleed Consulting Provider: Ivan Bartlett Consulting Physician: Ivan Bartlett Reason for Consult: poss gi bleed 12/25/18 23:26 Physician Consult Routine Comment: Consulting Provider: Camacho Matta Consulting Physician: Camacho Matta Reason for Consult: severe anemia 12/26/18 07:00 Cardiology Consult Routine Comment: Consulting Provider: Garcia Goodwin Consulting Physician: Garcia Goodwin Reason for Consult: chest pain Time Spent in preparation of Discharge (in minutes): 30 Diagnosis - Discharge Diagnosis (1) Chest pain Status: Acute (2) Dyspnea Status: Acute (3) Dyspnea on exertion Status: Acute (4) Severe anemia Status: Acute Hospital Course - Lab Results Lab Results: Micro Results 12/26/18 21:43 Urine,Clean Catch Urine Culture - Final 10-50,000 CFU/ML. MULTIPLE SPECIES. PROBABLE CONTAMINATION. Most Recent Lab Values WBC 7.7 K/uL (4.8-10.8) 12/27/18 07:01 RBC 3.83 Mil/uL (3.80-5.20) 12/27/18 07:01 Hgb 9.2 g/dL (11.0-16.0) L 12/27/18 07:01 Hct 29.0 % (34.0-47.0) L 12/27/18 07:01 MCV 75.8 fL (81.0-99.0) L D 12/27/18 07:01 MCH 24.1 pg (27.0-31.0) L 12/27/18 07:01 MCHC 31.9 g/dL (33.0-37.0) L 12/27/18 07:01 RDW 22.2 % (11.5-14.5) H 12/27/18 07:01 Plt Count 274 K/uL (130-400) 12/27/18 07:01 MPV 7.7 fL (7.2-11.7) 12/27/18 07:01 Neut % (Auto) 64.1 % (50.0-75.0) 12/27/18 07:01 Lymph % (Auto) 24.4 % (20.0-40.0) 12/27/18 07:01 Valley % (Auto) 7.3 % (0.0-10.0) 12/27/18 07:01 Eos % (Auto) 3.0 % (0.0-4.0) 12/27/18 07:01 Baso % (Auto) 1.2 % (0.0-2.0) 12/27/18 07:01 Neut # (Auto) 4.9 K/uL (1.8-7.0) 12/27/18 07:01 Lymph # (Auto) 1.9 K/uL (1.0-4.3) 12/27/18 07:01 Valley # (Auto) 0.6 K/uL (0.0-0.8) 12/27/18 07:01 Eos # (Auto) 0.2 K/uL (0.0-0.7) 12/27/18 07:01 Baso # (Auto) 0.1 K/uL (0.0-0.2) 12/27/18 07:01 PT 11.7 SECONDS (9.7-12.2) 12/25/18 21:26 INR 1.1 12/25/18 21:26 APTT 32.2 SECONDS (21-34) 12/25/18 21:26 Sodium 136 mmol/L (132-148) 12/27/18 07:41 Potassium 4.5 mmol/L (3.6-5.2) 12/27/18 07:41 Chloride 101 mmol/L (98-107) 12/27/18 07:41 Carbon Dioxide 24 mmol/L (22-30) 12/27/18 07:41 Anion Gap 16 (10-20) 12/27/18 07:41 BUN 11 mg/dL (7-17) 12/27/18 07:41 Creatinine 1.0 mg/dL (0.7-1.2) 12/27/18 07:41 Est GFR ( Amer) > 60 12/27/18 07:41 Est GFR (Non-Af Amer) 55 12/27/18 07:41 POC Glucose (mg/dL) 125 mg/dL (65-110) H 12/29/18 11:30 Random Glucose 138 mg/dL (65-105) H D 12/27/18 07:41 Calcium 9.9 mg/dl (8.6-10.4) 12/27/18 07:41 Phosphorus 4.3 mg/dL (2.5-4.5) 12/26/18 08:02 Magnesium 1.7 mg/dL (1.6-2.3) 12/26/18 08:02 Iron 277 ug/dL (37-170) H 12/26/18 16:51 TIBC 491 ug/dL (250-450) H 12/26/18 16:51 % Saturation 57 (20-55) H 12/26/18 16:51 Ferritin 9.3 ng/mL 12/26/18 08:02 Total Bilirubin 0.5 mg/dL (0.2-1.3) 12/27/18 07:41 AST 36 U/L (14-36) 12/27/18 07:41 ALT 22 U/L (9-52) 12/27/18 07:41 Alkaline Phosphatase 76 U/L (38-126) 12/27/18 07:41 Total Creatine Kinase 73 U/L (30-135) 12/26/18 08:02 CK-MB (Mass) 0.68 ng/mL (0.0-3.38) 12/26/18 08:02 Troponin I < 0.0120 ng/mL (0.00-0.120) 12/26/18 08:02 NT-Pro-B Natriuret Pep 161 pg/mL (0-900) 12/25/18 21:26 Total Protein 7.4 g/dL (6.3-8.3) 12/27/18 07:41 Albumin 4.1 g/dL (3.5-5.0) 12/27/18 07:41 Globulin 3.3 gm/dL (2.2-3.9) 12/27/18 07:41 Albumin/Globulin Ratio 1.3 (1.0-2.1) 12/27/18 07:41 Vitamin B12 904 pg/mL (239-931) 12/26/18 08:02 Folate 13.0 ng/mL 12/26/18 08:02 Urine Color Straw (YELLOW) 12/25/18 23:39 Urine Clarity Clear (Clear) 12/25/18 23:39 Urine pH 7.0 (5.0-8.0) 12/25/18 23:39 Ur Specific Jerome 1.006 (1.003-1.030) 12/25/18 23:39 Urine Protein Negative mg/dL (NEGATIVE) 12/25/18 23:39 Urine Glucose (UA) Normal mg/dL (Normal) 12/25/18 23:39 Urine Ketones Negative mg/dL (NEGATIVE) 12/25/18 23:39 Urine Blood 1+ (NEGATIVE) H 12/25/18 23:39 Urine Nitrate Negative (NEGATIVE) 12/25/18 23:39 Urine Bilirubin Negative (NEGATIVE) 12/25/18 23:39 Urine Urobilinogen Normal mg/dL (0.2-1.0) 12/25/18 23:39 Ur Leukocyte Esterase 1+ Ernestina/uL (Negative) H 12/25/18 23:39 Urine WBC (Auto) 4 /hpf (0-5) 12/25/18 23:39 Urine RBC (Auto) 6 /hpf (0-3) H 12/25/18 23:39 Ur Squamous Epith Cells 1 /hpf (0-5) 12/25/18 23:39 Urine Bacteria Occ (<OCC) H 12/25/18 23:39 Stool Occult Blood Negative (NEGATIVE) 12/26/18 01:20 Blood Type O POSITIVE 12/25/18 21:33 Antibody Screen Negative 12/25/18 21:33 - Hospital Course Hospital Course: pt was Moderate to high complexity of care. Plan of care discussed with patient &/or family & staff. Medications reviewed and reconciled. Labs reviewed. Vitals reviewed. admitted with chest pain and shortness of breath also seen by cardiology ulcers seen by hematology and seen by GI for severe anemia patient underwent a colonoscopy yesterday patient started on DuoNeb cleared by the cardiology for further work-up as an outpatient patient underwent endoscopy yesterday patient advised to follow-up with the biopsy and report with the PMD or my office within 48 hours patient understood spoke to the family multiple times during hospitalizations patient hemoglobin is 9.2 today hematocrit is 29 WBC 7.7 p atient is ready for the discharge after being told about the reports of endoscope he also discussed with the GI Discharge Exam - Head Exam Head Exam: ATRAUMATIC Discharge Plan - Discharge Medications Prescriptions: Ferrous Sulfate 325 mg PO BID #60 tablet Pantoprazole Sodium [Protonix] 40 mg PO DAILY #30 ect - Follow Up Plan Condition: GUARDED Disposition: HOME/ ROUTINE Instructions: Shortness of Breath (Dyspnea) (DC), Anemia of Chronic Disease (DC), Ferrous Sulfate, Pantoprazole Additional Instructions: FOLLOW UP WITH PMD IN 1 WEEK IRON SUPPLIMENT / FOLLOW UP WITH DR MATTA 1N 2 WEEKS Referrals: Camacho Matta MD [Staff Provider] - Garcia Goodwin MD [Staff Provider] - Ivan Bartlett MD [Staff Provider] - Millie Garcia MD [Staff Provider] - Crow Hollis MD [Staff Provider] -
== END 2018-12-29 15:53 | disposition home or self-care (01) | DRG 384 ==
LOC: C.ER 20:38 → C.9E 22:02 → C.5S 22:29
PROVIDERS: ADMIT Internal Medicine Nephrology; ATTEND Internal Medicine Nephrology
PROC: 0DJD8ZZ Inspection of Lower Intestinal Tract, Via Natural or Artificial Opening Endoscopic (ICD-10-PCS; principal; 2018-12-29 08:26)
PROC: 0DB68ZX Excision of Stomach, Via Natural or Artificial Opening Endoscopic, Diagnostic (ICD-10-PCS; 2018-12-29 08:26)
DX: K26.9 Duodenal ulcer, unspecified as acute or chronic, without hemorrhage or perforation (principal); D50.9 Iron deficiency anemia, unspecified; E11.9 Type 2 diabetes mellitus without complications; E78.5 Hyperlipidemia, unspecified; I10 Essential (primary) hypertension; I25.10 Atherosclerotic heart disease of native coronary artery without angina pectoris; Z95.5 Presence of coronary angioplasty implant and graft; K64.8 Other hemorrhoids; R07.89 Other chest pain; K29.50 Unspecified chronic gastritis without bleeding; B96.81 Helicobacter pylori [H. pylori] as the cause of diseases classified elsewhere